=== PATIENT | female | born 1960 | race African-American/Black ===

== ENCOUNTER 2016-08-03 03:39 | Inpatient (IN) ==
--- NOTE | 2016-08-03 04:30 | Emergency Department Note ---
I, Tara Hoffman, am scribing for, and in the presence of, Verna Duran DO 04:27. IRoger Debra, DO, personally performed the services described in this documentation, ascribed by Tara Hoffman in my presence, and it is both accurate and complete 430 . Arrival - Arrival Chief Complaint: Non-Specific ED Nursing Triage Note: patient to ED via ems with c/o calling ambulance for being on the floor and not being able to get up. upon ems arrival patient was c/ o abd pain, sob. patient is currently stating she cant breath and has abd pain. patient has alot of unaccoutned for medication according to her rx bottles. Mode of Arrival: Stretcher Limitations: No Limitations Source: Patient Time Seen by Provider: 08/03/16 03:53 - History of Present Illness HPI Narrative: Pt is a 55 y/o female who came to ED by EMS for further evaluation of SOB and abdomen pain s/p of EMS finding pt on floor of home this morning. EMS reports having to break door down to get in due to pt unresponsive on floor. (EMS states her house is empty but clean; no cushions in the couch, mattress on floor , 2 TVs, cabinets are bare.) EMS notes pt was combative when aroused and had sputum and gross amounts of BMs during walk from home to ambulance. EMS repots newly filled prescription bottles of 2 different norcos (2015) were found more than half taken of originally prescribed 90 to 100. Pt's bottle of ambien prescribed beginning of July 2016 is completely empty. Pt denies suicidal ideation or taking any of these medications today or last night. Pt is a smoker of [employer] 100s and PCP is Dr. Gertrudis Quinones. Pt has 7 kids and no one was at the residence or in the hospital with her. Onset (ago): hour(s) Consistency: constant Severity: moderate Severity scale (1-10): 6 Allergies/Adverse Reactions: Allergies Allergy/AdvReac Type Severity Reaction Status Date / Time acetaminophen [From Vicodin] Allergy Nausea Verified 06/24/16 13:15 hydrocodone [From Vicodin] Allergy Nausea Verified 06/24/16 13:15 tapentadol [From Nucynta] Allergy ITCHING Verified 06/24/16 13:15 aspirin AdvReac Unknown/Unable Verified 06/24/16 13:15 to obtain Home Medications: Home Medications Medication Instructions Recorded Confirmed Type Atenolol 1 tablet PO DAILY 05/12/15 08/03/16 History Escitalopram [Lexapro] 20 mg PO DAILY 05/12/15 08/03/16 History cloNIDine HCl [Clonidine HCl] 0.2 mg PO BID #60 tablet 05/12/15 08/03/16 Rx Acetaminophen Tab [Tylenol Tab] 650 mg PO Q6H PRN #0 tablet 08/07/16 Rx Aspirin EC Tab 81 mg PO DAILY tablet 08/07/16 Rx Cholecalciferol (Vitamin D3) 50,000 unit PO DIRECTED #1 08/07/16 Rx [Vitamin D3] capsule Docusate Sodium Cap [Colace Cap] 100 mg PO BID capsule 08/07/16 Rx Gabapentin 600 mg PO BEDTIME #30 tablet 08/07/16 Rx Hyoscyamine Tab [Levsin Tab] 1 mg PO QID PRN #0 tablet 08/07/16 Rx Lisinopril [Prinivil] 20 mg PO BID #60 tablet 08/07/16 Rx Pantoprazole Tab [Protonix Tab] 40 mg PO DAILY #30 tablet 08/07/16 Rx Potassium Chloride Cap/Tab [K Dur] 20 meq PO DAILY #7 tablet 08/07/16 Rx hydrALAZINE TAB [Apresoline Tab] 25 mg PO BID #60 tablet 08/07/16 Rx levETIRAcetam TAB [Keppra Tab] 500 mg PO BID #60 tablet 08/07/16 Rx traMADol TAB [Ultram] 50 mg PO Q12H PRN #60 tablet 08/07/16 Rx Review of System - Review of System 12 point system: reviewed and no additional remarkable complaints except as stated - Review of System Constitutional: Present: weakness. Absent: chills, fever Respiratory: Present: respiratory distress (SOB). Absent: cough Cardiovascular: Absent: chest pain Gastrointestinal: Present: abdominal pain, other (nml BM but in gross amounts) Musculoskeletal: Absent: arm pain, back pain, leg pain, neck pain Skin: Absent: rash Neurological: Absent: headache Medical,Surgical,& Family Hx - Medical History Cardio: History of: Hypertension Psychological: History of: Bipolar Disorder Neurology: History of: Seizures Endocrine: No history of: Diabetes Mellitus (NIDDM) Respiratory: No history of: Asthma, COPD Genitourinary: No history of: Kidney Stones Gastrointestinal: History of: Gastrointestinal Bleed (remote NSAID induced ulceration), GI Problems (BLEEDING ULCERS) No history of: Liver Problems Musculoskeletal: History of: Back/Neck Problems (DR PRUITT), Musculoskeletal Problems (OA in rt hand) Reproductive: No history of: Abnormal Pap Smear Other: History of: Miscellaneous Medical Problems (chronic pain management Dr. Pruitt) - Surgical History Cardiac Surgeries: Patient Denies: Cardiac Catheterization Reproductive Surgeries: Surgical HX of;: Section (x3) - Family History Family History: Reports;: Family Stroke (MOTHER) - Social History Smoking Status: Current every day smoker Frequency of Alcohol Use: None Type of Drug Use: None Exam Vital Signs: Vital Signs Temperature 97.3 F L 08/08/16 07:20 Pulse Rate 59 L 08/08/16 07:20 Respiratory Rate 20 08/08/16 07:20 Blood Pressure 192/68 08/08/16 07:20 O2 Sat by Pulse Oximetry 97 08/08/16 07:20 - General General appearance: alert, lethargic, in distress - Head Head exam: Present: atraumatic, normocephalic - Eye Eye exam: Present: PERRL, EOMI - ENT ENT exam: Present: mucous membranes dry. Absent: mucous membranes moist - Neck Neck exam: Present: full ROM. Absent: tenderness - Chest Chest inspection: Present: symmetric chest wall rise. Absent: tenderness - Respiratory Respiratory exam: Present: normal lung sounds bilaterally. Absent: respiratory distress - Cardiovascular Cardiovascular exam: Present: regular rate, normal rhythm, normal heart sounds - Abdominal Exam Abdominal exam: Present: soft, distention - Extremities Exam Extremities exam: Present: full ROM. Absent: tenderness, pedal edema - Neurological Exam Neurological exam: Present: alert, oriented X3, CN II-XII intact. Absent: motor sensory deficit - Psychiatric Psychiatric exam: Present: other (lethargic but easily arousable). Absent: normal affect, normal mood - Skin Skin exam: Present: warm, dry Results - Labs CBC & BMP: 08/06/16 03:20 08/08/16 04:38 Lab Results: I have reviewed the patients labs Labs: Laboratory Tests 08/03/16 08/03/16 08/03/16 03:53 04:05 04:05 WBC 16.2 H MCHC 31.2 L MPV 12.3 H Neut % (Auto) 75.6 H Lymph % (Auto) 15.8 L Neut # (Auto) 12.3 H Hamblen # (Auto) 1.0 H Glucose 131 H POC Glucose 136 H Alkaline Phosphatase 170 H Ammonia Troponin I Globulin 3.9 H Albumin/Globulin Ratio 0.8 L Urine Urobilinogen Urine Opiates Screen Serum Alcohol < 15 L 08/03/16 08/03/16 08/03/16 04:05 04:05 04:30 WBC MCHC MPV Neut % (Auto) Lymph % (Auto) Neut # (Auto) Hamblen # (Auto) Glucose POC Glucose Alkaline Phosphatase Ammonia 37 H Troponin I 0.051 H Globulin Albumin/Globulin Ratio Urine Urobilinogen < 2.0 H Urine Opiates Screen Serum Alcohol 08/03/16 04:30 WBC MCHC MPV Neut % (Auto) Lymph % (Auto) Neut # (Auto) Hamb[place] # (Auto) Glucose POC Glucose Alkaline Phosphatase Ammonia Troponin I Globulin Albumin/Globulin Ratio Urine Urobilinogen Urine Opiates Screen Positive H Serum Alcohol - Diagnostic Findings Procedure: CT Abdomen and Pelvis: report reviewed by me (1. A pleural-based nodular denisty on along the left lower lobe measuring 6.6 mm is noted. 2. The lungs also have a miliary appearance which could be artifactual and exaggerated by motion artifact. However an infectious process such as tuberculosis or lymphangitic infiltration are considerations. 3. Reminder of findings as described above.), CT: report reviewed by me (Head wo con: 1. No acute intracranial abnormality. Negative CT does not exclude an acute CVA. A follow up head or MRI is recommended if neurologic sxs persist. 2. Volume loss. 3. Reminder of findings as discussed above.) Disposition Clinical Impression: chronic pain syndrome, Alteration consciousness Case discussed with: patient Disposition: Still a Patient Condition: Stable New Prescriptions: Rx's Medication Instructions Recorded Acetaminophen Tab [Tylenol Tab] 650 mg PO Q6H PRN #0 tablet 08/07/16 Aspirin EC Tab 81 mg PO DAILY tablet 08/07/16 Cholecalciferol (Vitamin D3) 50,000 unit PO DIRECTED #1 08/07/16 [Vitamin D3] capsule Docusate Sodium Cap [Colace Cap] 100 mg PO BID capsule 08/07/16 Gabapentin 600 mg PO BEDTIME #30 tablet 08/07/16 Hyoscyamine Tab [Levsin Tab] 1 mg PO QID PRN #0 tablet 08/07/16 Lisinopril [Prinivil] 20 mg PO BID #60 tablet 08/07/16 Pantoprazole Tab [Protonix Tab] 40 mg PO DAILY #30 tablet 08/07/16 Potassium Chloride Cap/Tab [K Dur] 20 meq PO DAILY #7 tablet 08/07/16 hydrALAZINE TAB [Apresoline Tab] 25 mg PO BID #60 tablet 08/07/16 levETIRAcetam TAB [Keppra Tab] 500 mg PO BID #60 tablet 08/07/16 traMADol TAB [Ultram] 50 mg PO Q12H PRN #60 tablet 08/07/16
[2016-08-03 04:44] LABS: Apearance,Urine CLEAR (Clear); Bilirubin,Urine Negative (Negative); Blood, Urine Negative (Negative); Glucose,Urine (UA) Negative (Negative); Hyaline Casts,Urine 1 /LPF (0-3); Ketones,Urine Negative (Negative); Mucus,Urine Occasional /LPF (Occasional); Nitrite,Urine Negative (Negative); Protein,Urine 30 MG/DL; RBC,Urine <1 /HPF (0-4); Urine Color Yellow (Yellow); Urine Specific Gravity 1.012 (1.001-1.035); Urine Urobilinogen < 2.0 EU/DL (0.2-1.0); WBC,Urine <1 /HPF (0-6)
[2016-08-03 04:55] LABS: Barbiturates Screen,Urine Negative (Negative); Benzodiazepines Screen,Urine Negative (Negative); Cannabinoid Screen,Urine Negative (Negative); Opiate Screen,Urine Positive (Negative); Phencyclidine Screen,Urine Negative (Negative)
[2016-08-03 05:01] LABS: Basophils % 0.2 % (0.0-0.8); Eosinophils # 0.2 10*3/uL (0.0-0.87); Hemoglobin 13.1 GM/DL (12.0-16.0); Immature Granulocytes % 1.2 %; Immature Granulocytes Absolute 0.19 #; Lymphocytes # 2.6 10*3/uL (1.4-4.0); Lymphocytes % 15.8 % (21.3-54.2); Mean Corpuscular HGB Conc 31.2 GM/DL (32-36); Mean Corpuscular Hemoglobin 29 PG (27-34); Mean Corpuscular Volume 93.5 FL (87-102); Mean Platelet Volume 12.3 FL (9.6-12.0); Monocytes % 6.2 % (1.7-12.7); Neutrophils # 12.3 10*3/uL (1.4-7.4); Neutrophils % 75.6 % (38.7-73.9); Platelet Count 284 10*3/uL (130-400); Red Blood Count 4.49 10*6/uL (3.8-5.5); Red Cell Distribution Width 14.2 % (9.3-17.3); White Blood Count 16.2 10*3/uL (4.5-13.71)
[2016-08-03 05:09] LABS: Lactic Acid 1.8 MMOL/L (0.4-2.0)
[2016-08-03 05:15] LABS: Alanine Aminotransferase 19 U/L (13-56); Albumin 3.5 G/DL (3.4-5.0); Alkaline Phosphatase 170 U/L (45-117); Aspartate Amino Transferase 20 U/L (0-37); Blood Urea Nitrogen 10 MG/DL (7-18); Calcium 8.5 MG/DL (8.5-10.1); Glucose 131 MG/DL (74-106); Osmolality,Calculated 288.7 MOS/KG (273-304); Sodium 145 MMOL/L (136-145); Total Protein 7.4 G/DL (6.4-8.3)
[2016-08-03 05:18] LABS: Troponin I Only 0.051 NG/ML (0.00-0.045)
[2016-08-03] MEDS ORDERED: hydrALAZINE 20 MG/1 ML VIAL IV STA (05:31)
[2016-08-03] MEDS ORDERED: hydrALAZINE 20 MG/1 ML VIAL ONE (05:33)
[2016-08-03] MEDS ORDERED: cefTRIAXone 1,000 MG in SODIUM CHLORIDE 0.9% 100 ML IV STA (05:41)
[2016-08-03] MEDS ORDERED: cefTRIAXone 1,000 MG VIAL ONE (05:50)
[2016-08-03] MEDS ORDERED: ONDANSETRON 4 MG/2 ML VIAL IV STA (05:50)
[2016-08-03] MEDS ORDERED: SODIUM CHLORIDE 0.9% 100 ML IV ONE (05:50)
[2016-08-03] MEDS ORDERED: MORPHINE 2 MG/1 ML SYRINGE IV STA (05:51)
[2016-08-03] MEDS ORDERED: ONDANSETRON 4 MG/2 ML VIAL ONE (05:52)
[2016-08-03] MEDS ORDERED: MORPHINE 2 MG/1 ML SYRINGE ONE (05:52)
[2016-08-03] MEDS ORDERED: METOCLOPRAMIDE 10 MG/2 ML VIAL IV STA ×2 (06:00→06:02)
[2016-08-03] MEDS ORDERED: METOCLOPRAMIDE 10 MG/2 ML VIAL ONE (06:00)
[2016-08-03] MEDS ORDERED: METOPROLOL TARTRATE 5 MG/5 ML VIAL IV ONE (06:01)
[2016-08-03] MEDS ORDERED: METOPROLOL TARTRATE 5 MG/5 ML VIAL IV STA (06:02)
[2016-08-03] MEDS ORDERED: PROMETHAZINE 25 MG/1 ML VIAL IM PRN (06:05)
[2016-08-03] MEDS ORDERED: ONDANSETRON 4 MG/2 ML VIAL IV PRN (06:05)
[2016-08-03] MEDS ORDERED: FAMOTIDINE 20 MG/2 ML VIAL IV SCH (06:30)
--- NOTE | 2016-08-03 07:14 | EKG Report ---
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
[2016-08-03] MEDS ORDERED: cloNIDine 0.1 MG TABLET PO STA (07:34)
--- NOTE | 2016-08-03 08:33 | CT Report ---
History is altered LOC Comparison 08/17/2015 and prior MRI. The lateral ventricles are normal in size No acute intracranial hemorrhage is seen There is a 1.5 CM nodule in the left sellar and suprasellar region similar on the prior study No new areas of mass effect are seen No acute cortical stroke seen Impression: No appreciable change in 1.5 CM left sellar and suprasellar soft tissue mass as previously described PROCEDURE INTERPRETED AT [facility] DEPARTMENT OF RADIOLOGY Final Report Signed by: Dr. Lucy Byrne
--- NOTE | 2016-08-03 08:41 | CT Report ---
History is generalized abdominal pain There is mild interstitial prominence and bronchial wall thickening and minimal groundglass opacities in the visualized lung bases area and there is a 6 mm subpleural nodule in the visualized left lung base. Motion artifact mildly limits many the images No secondary signs of acute ureteral obstruction seen No enlarged retroperitoneal nodes seen Bowel is unopacified Pelvis: Varghese catheter is present. No free fluid or focal inflammatory changes seen. Impression: 1. Interstitial and groundglass opacities in the lung bases could be chronic or related to mild interstitial infiltrates versus edema 2. 6 mm subpleural nodule in the left lung base. Comparison with any available prior studies would be most helpful. Correlation with any known risk factors is recommended. At minimum, [address] chest should be considered PROCEDURE INTERPRETED AT [facility] DEPARTMENT OF RADIOLOGY Final Report Signed by: Dr. Lucy Byrne
[2016-08-03] MEDS ORDERED: HYOSCYAMINE 0.125 MG TABLET PO PRN (09:13)
[2016-08-03] MEDS ORDERED: ACETAMINOPHEN 325 MG TABLET PO PRN (09:15)
[2016-08-03] MEDS ORDERED: ATENOLOL 25 MG TABLET PO SCH (09:30)
--- NOTE | 2016-08-03 09:43 | Family Practice History&Phys ---
Assessment and Plan (1) right upper quadrant abdominal pain Status: Acute Assessment and plan: Not sure of etiology of her abdominal pain. We will order additional studies and consult GI Current Visit: Yes (2) trigeminal neuralgia Status: Chronic Assessment and plan: Patient on chronic pain medications treated by Dr. Marshall Current Visit: Yes (3) chronic pain syndrome Status: Chronic Assessment and plan: Patient on chronic pain medications treated Dr. pruitt Current Visit: Yes (4) bipolar disorder Status: Chronic Assessment and plan: Will resume home meds Current Visit: Yes (5) History of seizures Status: Chronic Current Visit: No (6) Hypertension Status: Chronic Assessment and plan: Will resume home meds Current Visit: No Qualifiers: Hypertension type: essential hypertension Qualified Code(s): I10 - Essential (primary) hypertension History of Present Illness Chief complaint: abdominal pain and weakness History of present illness: Ms. Klein is a 55 year old female Pt is a 55 y/o female who came to ED by EMS for further evaluation of SOB and abdomen pain s/p of EMS finding pt on floor of home this morning. EMS reports having to break door down to get in due to pt unresponsive on floor. (EMS states her house is empty but clean; no cushions in the couch, mattress on floor , 2 TVs, cabinets are bare.) EMS notes pt was combative when aroused and had sputum and gross amounts of BMs during walk from home to ambulance. EMS repots newly filled prescription bottles of 2 different norcos (2015) were found more than half taken of originally prescribed 90 to 100. Pt's bottle of ambien prescribed beginning of July 2016 is completely empty. Pt denies suicidal ideation or taking any of these medications today or last night. Pt is a smoker of [employer] 100s and PCP is Dr. Gertrudis Quinones. Pt has 7 kids and no one was at the residence or in the hospital with her. Main complaint at time of my evaluation was abdominal pain. She remains somewhat lethargic but points to the right upper quadrant of abdomen. States she has pain on minimal palpation. CT abdomen was unremarkable. The history was admitted further evaluation and therapy Home Medications Medication Instructions Recorded Confirmed Type Atenolol [Atenolol] 1 tablet PO DAILY 05/12/15 06/24/16 History Escitalopram [Lexapro] 20 mg PO DAILY 05/12/15 06/24/16 History cloNIDine HCl [Clonidine HCl] 0.2 mg PO BID #60 tablet 05/12/15 08/03/16 Rx OXcarbazepine [Oxcarbazepine] 300 mg PO DAILY 04/27/16 06/24/16 History Gabapentin 600 mg PO QID 06/24/16 06/24/16 History Hydrocodone/Acetaminophen [Lortab 1 each PO QID PRN 06/24/16 06/24/16 History 10-325 mg Tablet] Hyoscyamine Odt Tab [Anaspaz] 1 tablet PO QID PRN 08/03/16 08/03/16 History Allergies Allergy/AdvReac Type Severity Reaction Status Date / Time acetaminophen [From Vicodin] Allergy Nausea Verified 06/24/16 13:15 hydrocodone [From Vicodin] Allergy Nausea Verified 06/24/16 13:15 tapentadol [From Nucynta] Allergy ITCHING Verified 06/24/16 13:15 aspirin AdvReac Unknown/Unable Verified 06/24/16 13:15 to obtain Medical,Surgical,& Family Hx - Medical History Cardio: History of: Hypertension Psychological: History of: Bipolar Disorder Neurology: History of: Seizures Endocrine: No history of: Diabetes Mellitus (NIDDM) Respiratory: No history of: Asthma, COPD Genitourinary: No history of: Kidney Stones Gastrointestinal: History of: Gastrointestinal Bleed (remote NSAID induced ulceration), GI Problems (BLEEDING ULCERS) No history of: Liver Problems Musculoskeletal: History of: Back/Neck Problems (DR PRUITT), Musculoskeletal Problems (OA in rt hand) Reproductive: No history of: Abnormal Pap Smear Other: History of: Miscellaneous Medical Problems (chronic pain management Dr. Pruitt) - Surgical History Cardiac Surgeries: Patient Denies: Cardiac Catheterization Reproductive Surgeries: Surgical HX of;: Section (x3) - Family History Family History: Reports;: Family Stroke (MOTHER) - Social History Smoking Status: Current every day smoker Have you smoked in the last 12 months: Yes Time spent discussing smoking cessation with patient: 3 to 10 minutes Frequency of Alcohol Use: None Type of Drug Use: Opiates Lives With:: Alone Functional capacity: independent ambulation Exam - Constitutional Vitals: Period Temp Pulse Resp BP Sys/Vogel Pulse Ox Last 24 Hr 94-95 17-17 150-158/88-100 99-100 General appearance: mild distress - Head Head exam: Present: normal inspection - Eye Pupils: Present: normal accommodation - ENT ENT exam: Present: normal exam - Neck Neck exam: Present: normal inspection - Respiratory Respiratory exam: Present: clear to auscultation bilaterally - Cardiovascular Cardiovascular exam: Present: regular rate and rhythm - GI/Abdominal GI/Abdominal exam: Present: normal bowel sounds, tenderness (plan is on palpation over the epigastric and right upper quadrant) - Extremities Exam Extremities exam: Present: normal inspection - Back Exam Back exam: Present: normal inspection - Neurological Exam Neurological exam: Present: altered - Psychiatric Psychiatric exam: Present: flat affect - Skin Skin exam: Present: normal color Results - Labs CBC & BMP: 08/03/16 04:05 08/03/16 04:05
[2016-08-03] MEDS: DOCUSATE SODIUM 100 MG CAPSULE PO SCH ×2 (10:25→20:41)
[2016-08-03] MEDS: ESCITALOPRAM 10 MG TABLET PO SCH (10:26)
[2016-08-03] MEDS: SODIUM CHLORIDE 0.9% 1,000 ML IV SCH (10:28)
--- NOTE | 2016-08-03 10:37 | Ultrasound Report ---
History is generalized abdominal pain and epigastric pain Hepatic and splenic size and echotexture is normal. No gallstones or biliary ductal dilatation seen. The visualized pancreas is normal in size. The visualized IVC and aorta are normal in size. No renal hydronephrosis identified bilaterally. Impression: Unremarkable abdominal ultrasound. The Ultrasound images were captured and stored. PROCEDURE INTERPRETED AT [facility] DEPARTMENT OF RADIOLOGY Final Report Signed by: Dr. Lucy Byrne
[2016-08-03] MEDS: GABAPENTIN 600 MG TABLET PO SCH ×3 (13:14→20:41)
--- NOTE | 2016-08-03 13:43 | XRay Report ---
History is dyspnea Comparison 08/15/2015 Heart is at the upper range normal in size. There is mild prominence of upper lobe vasculature There has been development of mildly increasing diffuse bilateral interstitial pulmonary opacities without more focal consolidation. Impression: Mild worsening of diffuse interstitial opacities most likely pulmonary edema PROCEDURE INTERPRETED AT [facility] DEPARTMENT OF RADIOLOGY Final Report Signed by: Dr. Lucy Byrne
[2016-08-03] MEDS ORDERED: FUROSEMIDE 40 MG/4 ML VIAL IM ONE (14:04)
--- NOTE | 2016-08-03 14:13 | Family Practice Progress Note ---
Family Practice - PN: Subj Interval history: This is an addendum to previous note. When I initially saw the patient she was in no respiratory distress and her respiratory rate was 17. Her lungs were clear to auscultation. After going back and reviewing the chart I did not find a chest x-ray present. I also did not realize that she was on 5 L of nasal O2. Reevaluation shows that she's in pulmonary edema. Her respiratory rate and pulse remain stable. She still does not appear to be any acute respiratory distress. Her BNP was elevated at 664 on admission. History provided on admission centered around her abdominal pain and not about any respiratory problems. I cannot find any previous record of her having a history of congestive heart failure. She is actually much more alert now and in no acute distress. Will decrease her oxygen and in view of the pulmonary edema we will give the patient patient IV and oral Lasix. We'll obtain a cardiac echo and cardiology consult. Her complaint is still in reference to her abdominal pain. Patient history is still somewhat confusing and I feel that most of her symptoms began with taking excessive amounts of her pain and sedative medications. EMS reported that patient had a large amounts of bowel movement when they stood her up to take her to the ambulance. We will continue to monitor closely and obtain additional studies. Exam (Progress Note) - Constitutional Vitals: Period Temp Pulse Resp BP Sys/Vogel Pulse Ox Last 24 Hr 98.5 F-99.9 F 82-96 16-20 150-182/88-129 94-100 Results - Labs CBC & BMP: 08/03/16 04:05 08/03/16 04:05 Assessment and Plan (1) right upper quadrant abdominal pain Status: Acute Assessment and plan: Not sure of etiology of her abdominal pain. We will order additional studies and consult GI Current Visit: Yes (2) trigeminal neuralgia Status: Chronic Assessment and plan: Patient on chronic pain medications treated by Dr. Marshall Current Visit: Yes (3) chronic pain syndrome Status: Chronic Assessment and plan: Patient on chronic pain medications treated Dr. vargas Current Visit: Yes (4) bipolar disorder Status: Chronic Assessment and plan: Will resume home meds Current Visit: Yes (5) History of seizures Status: Chronic Current Visit: No (6) Hypertension Status: Chronic Assessment and plan: Will resume home meds Current Visit: No Qualifiers: Hypertension type: essential hypertension Qualified Code(s): I10 - Essential (primary) hypertension
[2016-08-03] MEDS ORDERED: FUROSEMIDE 40 MG/4 ML VIAL IV ONE (15:03)
[2016-08-03] MEDS ORDERED: FUROSEMIDE 20 MG TABLET PO SCH (16:00)
[2016-08-03] MEDS ORDERED: TUBERCULIN SKIN TEST 0.1 ML SYRINGE INTRADERM ONE (16:35)
[2016-08-03 17:13] LABS: Blood Urea Nitrogen 10 MG/DL (7-18); Calcium 8.8 MG/DL (8.5-10.1); Glucose 107 MG/DL (74-106); Osmolality,Calculated 284.8 MOS/KG (273-304); Potassium 4.4 MMOL/L (3.5-5.1); Sodium 144 MMOL/L (136-145); Troponin I Only 0.258 NG/ML (0.00-0.045)
[2016-08-03] MEDS: LEVOFLOXACIN INJ 500 MG in PREMIX 1 EACH IV SCH (17:46)
--- NOTE | 2016-08-03 19:58 | Family Practice Progress Note ---
Family Practice - PN: Subj Interval history: Staff contacted the on the floor stating that patient had minimally distended having twitching of her teeth with frothing her mouth and unresponsiveness. She has a history of seizure disorders and patient tells me that last took seizure medicines 10 years ago. I do not have any records of this. She is on Neurontin but supposedly vest for her chronic pain. On admission this a.m. apparently she had significant respiratory distress which apparently resolved with oxygen treatment. I titrated her oxygen and her O2 sats have remained stable but now have dropped back to the 80s and we have increased her oxygen. Her troponin has significantly decreased as well as her BNP has doubled since his a.m.. She's had good urinary output throughout the day. Clinically her symptoms do not match her labs and stated history. Her pulse and respirations have remained stable throughout the day. Do not have any old records or family to provide history. Patient now is relaxed and is denying any complaints. Earlier she was complaining of severe upper quadrant abdominal pain but now denies abdominal pain. She is resting well and denies chest pain shortness of breath or other complaints. This case has been somewhat confusing as clinical picture does not match lab and other findings. Clinically it sounds as though she had a seizure. I started her on IV Keppra. I have reviewed case in detail with staff. We'll continue to watch closely. Exam (Progress Note) - Constitutional Vitals: Period Temp Pulse Resp BP Sys/Vogel Pulse Ox Last 24 Hr 98.2 F-99.9 F 72-96 12-20 138-182/86-129 88-100 Results - Labs CBC & BMP: 08/03/16 04:05 08/03/16 16:20 Assessment and Plan (1) right upper quadrant abdominal pain Status: Acute Assessment and plan: Not sure of etiology of her abdominal pain. We will order additional studies and consult GI Current Visit: Yes (2) trigeminal neuralgia Status: Chronic Assessment and plan: Patient on chronic pain medications treated by Dr. Marshall Current Visit: Yes (3) chronic pain syndrome Status: Chronic Assessment and plan: Patient on chronic pain medications treated Dr. vargas Current Visit: Yes (4) bipolar disorder Status: Chronic Assessment and plan: Will resume home meds Current Visit: Yes (5) History of seizures Status: Chronic Current Visit: No (6) Hypertension Status: Chronic Assessment and plan: Will resume home meds Current Visit: No Qualifiers: Hypertension type: essential hypertension Qualified Code(s): I10 - Essential (primary) hypertension
[2016-08-04 05:06] LABS: Basophils % 0.2 % (0.0-0.8); Eosinophils # 0.1 10*3/uL (0.0-0.87); Eosinophils % 1.1 % (0.00-10.9); Hemoglobin 12.3 GM/DL (12.0-16.0); Immature Granulocytes % 0.3 %; Immature Granulocytes Absolute 0.03 #; Lymphocytes % 20.5 % (21.3-54.2); Mean Corpuscular HGB Conc 30.8 GM/DL (32-36); Mean Corpuscular Hemoglobin 29 PG (27-34); Mean Platelet Volume 12.6 FL (9.6-12.0); Monocytes # 0.7 10*3/uL (0.11-0.8); Monocytes % 7.5 % (1.7-12.7); Neutrophils # 6.9 10*3/uL (1.4-7.4); Neutrophils % 70.4 % (38.7-73.9); Platelet Count 140 10*3/uL (130-400); Red Blood Count 4.21 10*6/uL (3.8-5.5); Red Cell Distribution Width 14.4 % (9.3-17.3); White Blood Count 9.8 10*3/uL (4.5-13.71)
[2016-08-04 05:36] LABS: Magnesium 2.2 MG/DL (1.8-2.4); Risk Ratio 2.15; VLDL CHOLESTEROL 18.4 MG/DL
[2016-08-04 05:51] LABS: Albumin 2.8 G/DL (3.4-5.0); Bilirubin,Total 0.8 MG/DL (0.2-1.0); Calcium 8.6 MG/DL (8.5-10.1); Osmolality,Calculated 285.8 MOS/KG (273-304); Potassium 5.2 MMOL/L (3.5-5.1); Total Protein 6.5 G/DL (6.4-8.3)
--- NOTE | 2016-08-04 08:28 | Gastrointestinal Consult Note ---
Assessment and Plan - Time spent with patient Time spent with patient: Greater than 30 minutes (1) right upper quadrant abdominal pain Status: Acute Current Visit: Yes (2) Other specified counseling Status: Acute Current Visit: Yes History of Present Illness History of present illness: Ms. Klein is a 55 year old female Home Medications Medication Instructions Recorded Confirmed Type Atenolol [Atenolol] 1 tablet PO DAILY 05/12/15 08/03/16 History Escitalopram [Lexapro] 20 mg PO DAILY 05/12/15 08/03/16 History cloNIDine HCl [Clonidine HCl] 0.2 mg PO BID #60 tablet 05/12/15 08/03/16 Rx OXcarbazepine [Oxcarbazepine] 300 mg PO DAILY 04/27/16 08/03/16 History Gabapentin 600 mg PO QID 06/24/16 08/03/16 History Hydrocodone/Acetaminophen [Lortab 1 each PO QID PRN 06/24/16 08/03/16 History 10-325 mg Tablet] Hyoscyamine Odt Tab [Anaspaz] 1 tablet PO QID PRN 08/03/16 08/03/16 History Allergies Allergy/AdvReac Type Severity Reaction Status Date / Time acetaminophen [From Vicodin] Allergy Nausea Verified 06/24/16 13:15 hydrocodone [From Vicodin] Allergy Nausea Verified 06/24/16 13:15 tapentadol [From Nucynta] Allergy ITCHING Verified 06/24/16 13:15 aspirin AdvReac Unknown/Unable Verified 06/24/16 13:15 to obtain Medical,Surgical,& Family Hx - Medical History Cardio: History of: Hypertension Psychological: History of: Bipolar Disorder Neurology: History of: Seizures Endocrine: No history of: Diabetes Mellitus (NIDDM) Respiratory: No history of: Asthma, COPD Genitourinary: No history of: Kidney Stones Gastrointestinal: History of: Gastrointestinal Bleed (remote NSAID induced ulceration), GI Problems (BLEEDING ULCERS) No history of: Liver Problems Musculoskeletal: History of: Back/Neck Problems (DR PRUITT), Musculoskeletal Problems (OA in rt hand) Reproductive: No history of: Abnormal Pap Smear Other: History of: Miscellaneous Medical Problems (chronic pain management Dr. Pruitt) - Surgical History Cardiac Surgeries: Patient Denies: Cardiac Catheterization Reproductive Surgeries: Surgical HX of;: Section (x3) - Family History Family History: Reports;: Family Stroke (MOTHER) - Social History Smoking Status: Current every day smoker Frequency of Alcohol Use: None Type of Drug Use: Opiates Exam - Constitutional Vitals: Period Temp Pulse Resp BP Sys/Vogel Pulse Ox Last 24 Hr 97.4 F-99.9 F 7-82 12-28 138-179/86-105 88-100 Results - Labs CBC & BMP: 08/04/16 04:25 08/04/16 04:25 Note Addendum: PLEASE NOTE -- automatic citation of patient information is unavoidable in this electronic note. I have made a reasonable effort to review the information cited , but it is not a part of my evaluation, impression, or recommendation unless specifically discussed in the dictated text that follows. As well, voice recognition software was used in the creation of this clinical note. Reasonable effort was made to identify and correct gross errors. Despite proofreading, errors in animal scientist may be present, including nonsense verbiage at times. If you encounter such an error, please contact me at [phone] for discussion and correction. -- Consuelo Chief complaint: abdominal pain History of present illness: this is a new patient, a 55-year-old female seen by consultation for evaluation of right upper quadrant abdominal pain. The patient is admitted to the intensive care unit under the care of Dr. Love Quinones with a primary diagnosis of same. The patient was admitted through the emergency department yesterday, brought in by EMS, after having been found down on the floor of her home. The EMS providers and emergency department providers apparently found evidence that she may have taken multiple doses of narcotic pain medication. It was also noted that she was difficult to arouse and incontinent of stool prior to arriving at the hospital. Evaluation in the emergency room revealed nondiagnostic and relatively minor abnormalities as well as interstitial and groundglass opacities in the lung bases. The patient was admitted to the telemetry floor for further evaluation. On the day of admission, the patient was subject to a rapid response called due to poor responsiveness reported by the staff. Subsequent evaluation by her primary physician reported resolution of this concern with relatively minor intervention. The patient did develop further laboratory evidence of pulmonary edema/congestive heart failure but it is unclear to me whether this is incidental or was primarily involved in the rapid response called. The patient suffers from reported bipolar disorder as well as a reported history of seizures but has not taken medication for these conditions for some time. At present the patient reports continued right upper quadrant abdominal pain, aching quality with sharp peroxisms. She notes this has been going on for months or years. The pain is positional, worse when she is on her left side, but generally unresponsive to other measures. The pain is not affected by eating. She reports a history of peptic ulcer requiring endoscopic intervention about five years ago. She reports no NSAID use recently but is somewhat equivocal regarding her medication use generally. She does note a single episode of bright red blood per rectum this past Friday but thinks this may have been hemorrhoid related. She thinks she may have had colonoscopy some years ago but is equivocal on this question as well. She is unaware of any family history of gastrointestinal disease. Patient denies fever, chills, night sweats, rigors, visual changes, redness of the eyes, dysphagia, odynophagia, difficulty chewing, chest pain, weight loss, vomiting, regurgitation, hematemesis, melena, proctalgia, constipation, dysuria , skin changes, temperature regulation issues, flushing, easy bleeding/bruising , numbness/weakness in the extremities, yellowing of the eyes/skin, cutaneous eruptions, family history of gastrointestinal cancer and colon polyps, and other complaints in general. Review of systems: 12 point review of systems was negative except as documented above. Outpatient medications: atenolol, Lexapro, clonidine, oxcarbazepine, gabapentin , Lortab, hyoscyamine Inpatient medications: Tylenol, [place], atenolol, clonidine, Colace, Lexapro, Lasix, Neurontin, hyoscyamine, levetiracetam, levofloxacin, Zofran, Protonix, Phenergen, normal saline infusion Past Medical History: bipolar disorder, chronic pain, trigeminal neuralgia, history of seizures, pituitary adenoma, hypertension, cocaine abuse Social history: positive tobacco. Negative Alcohol Family history: No gastrointestinal cancers Physical examination: Vital Signs: Current vital signs reviewed and documented above. General Appearance: lying in bed. Comfortable. Conversant. No apparent distress Head: Normocephalic. Neck: Palpation of the neck revealed no abnormalities. Eyes: No scleral icterus. No scleral injection. No conjunctival pallor. Oral Cavity: Odor of breath was normal. No drooling was observed. Lips showed no abnormalities. Floor of the mouth showed no abnormalities. Pharynx: Oropharynx was normal. Lungs: Respiration rhythm and depth was normal. Cardiovascular: Heart rate and rhythm were normal. Abdomen: Abdomen was protuberant due to obesity but not distended. Abdominal palpation revealed minimal tenderness at the right upper quadrant but no hepatosplenomegaly. Ascites was not discovered. Abdominal auscultation revealed positive bowel sounds. Musculoskeletal System: Musculoskeletal system was grossly normal. Neurological: Level of consciousness was normal. Speech was normal. Skin: General appearance was normal. Color and pigmentation were normal. No skin lesions. Laboratory: white blood count 9.8, hemoglobin 12.3, hematocrit 40, platelets 140 , sodium 144, potassium 5.2, chloride 107, CO2 24, BUN 14, creatinine 0.8, glucose 81, lactate 1.8, calcium 8.6, magnesium 2.2, total bilirubin 0.8, ALT 15 , AST 36, alkaline phosphatase 138, B and P 1500, albumin 2.8, total protein 6.5 Radiology: -- CT of the abdomen and pelvis revealed "interstitial and groundglass opacities in the lung bases And 6 mm sub Aura module in the left lung base" No abdominal or pelvic etiology for pain as documented -- Ultrasound of the abdomen reveals no evidence of hepatic, pancreatic, or biliary disease Impressions: 1. Abdominal pain -- the differential diagnosis includes peptic ulcer, gastritis /esophagitis generally, pancreatic or biliary disease, medication related affect , functional abdominal pain, abdominal wall pain, and others. There is no radiologic or laboratory evidence of pancreatic or biliary disease. There is evidence of prescription medication abuse and, by report, history of recreational drug abuse. It's possible that the gastrointestinal symptoms are related to medication use or medication withdrawal. I recommend continued proton pump inhibitor, minimization of medications to whatever extent possible, and aggressive volume/electrolyte management. We will plan upper endoscopy tomorrow. 2. Hematochezia -- the patient reports a single episode of blood in her stool. She is not anemic at present. She believes she has had colonoscopy in the past but I don't believe we have any hope of getting this record. She will need diagnostic colonoscopy with timing based on clinical progress. If she is otherwise able to leave the hospital, this can be done in the outpatient setting. 3. Other specified counseling: The patient was seen for greater than 30 minutes. The patient was counseled for greater than 50% of this time regarding differential diagnosis, likely diagnosis, diagnostic and therapeutic alternatives, risks/benefits/alternatives of medications and procedures, and plan of care generally. The patient expressed understanding and wishes to proceed. Recommendations: -- continue Protonix -- minimize medications to whatever extent possible -- aggressive volume and electrolyte management -- upper endoscopy tomorrow -- colonoscopy with timing based on clinical progress -- thank you for this consultation. Dr. Alcantar will assume G.I. care for this patient tomorrow.
--- NOTE | 2016-08-04 08:40 | XRay Report ---
History is short of breath Comparison 08/03/2016 The heart and vessels remain mildly enlarged with mild diffuse bilateral reticulonodular and hazy pulmonary opacities. The lungs are less well aerated than on the prior study. No consolidation seen. Impression: No significant change in diffuse bilateral infiltrates versus edema PROCEDURE INTERPRETED AT [facility] DEPARTMENT OF RADIOLOGY Final Report Signed by: Dr. Lucy Byrne
--- NOTE | 2016-08-04 09:11 | Cardiology Consult Note ---
Assessment and Plan (1) NSTEMI (non-ST elevated myocardial infarction) Status: Acute Assessment and plan: 55y BF presented with acute onset right upper quadrant pain, cardiac biomarkers more than elevated, CHF, which resulted diuretics. Presentation is suspicious for hypertensive urgency, demand ischemia, CHF. This may have been exacerbated by opioid use, in addition, she may still also have some active GI pathology, history of ulcers. She is not bleeding actively. -NSTEMI. Will r/o ACS, eval for stress cardiomyopathy -Start ASA. I discussed this with Dr. Cordero. Until ACS is ruled out, we will need to keep her on an antiplatelet. She is not bleeding now. She is on a PPI. I would hold off adding Lovenox at this time. -Increase atenolol to 50 mg twice a day. BP still elevated. Cont clonidine. Add lisinopril 10 mg qd -Lipid panel normal. BS normal. If she rules in for ACS, will add statin -Echo. -Continue Lasix 20 mg by mouth twice a day. She got IV Lasix earlier, now the CHF symptoms improved and she does not have pulmonic congestion. -If the systolic function is preserved and she remains free of shortness of breath, GI evaluation may be pursued tomorrow. If she develops further CHF or echo shows significant CMP, may need cardiac/ischemic workup first Current Visit: Yes (2) Hypertension Status: Chronic Current Visit: No Qualifiers: Hypertension type: essential hypertension Qualified Code(s): I10 - Essential (primary) hypertension History of Present Illness - Data of Consult Patient: new to practice Consult date: 08/04/16 Requesting Physician: Keith Iglesias - Consult Narrative Reason for consult: syncope History of present illness: Ms. Klein is a 55 year old BF, with history of hypertension, GI ulcers, hemorrhoids, chronic pain issues. She developed severe right upper quadrant pain yesterday, which was quite rapid in onset. She described her diet for the past few days, in quite good detail, she did not have any major dietary issues but had lots of foods high in CH. She does drink some alcohold but does not seem to br drinking excessively. She called ambulance but by the time that she fell down and she may have passed out. She was then brought to the hospital. Initially, she did well, but then developed shortness of breath, which improved with diuresis. Now, she is comfortable, denies any chest pain shortness of breath but the abdominal pain still persists. She had a bowel movement yesterday. So far, workup, including CT labs x-ray and abdominal ultrasound, does not suggest obstruction or inflammatory process. She was recently evaluated for similar symptoms at [facility]. She also has a questionable history of seizures. No prior cardiac history, CABG, arrhythmia's, palpitations or chest pain. She may have taken too many [place], which is her usual pain medication. U tox was only positive for opiates. Cardiac enzymes were borderline elevated and remained flat. EKG showed significant ischemic changes. Blood pressure is still elevated. She had good urine output with Lasix. CC: Love Quinones, DO - Home Medications and Allergies Home Medications: Home Medications Medication Instructions Recorded Confirmed Type Atenolol [Atenolol] 1 tablet PO DAILY 05/12/15 08/03/16 History Escitalopram [Lexapro] 20 mg PO DAILY 05/12/15 08/03/16 History cloNIDine HCl [Clonidine HCl] 0.2 mg PO BID #60 tablet 05/12/15 08/03/16 Rx OXcarbazepine [Oxcarbazepine] 300 mg PO DAILY 04/27/16 08/03/16 History Gabapentin 600 mg PO QID 06/24/16 08/03/16 History Hydrocodone/Acetaminophen [Lortab 1 each PO QID PRN 06/24/16 08/03/16 History 10-325 mg Tablet] Hyoscyamine Odt Tab [Anaspaz] 1 tablet PO QID PRN 08/03/16 08/03/16 History Allergies/Adverse Reactions: Allergies Allergy/AdvReac Type Severity Reaction Status Date / Time acetaminophen [From Vicodin] Allergy Nausea Verified 06/24/16 13:15 hydrocodone [From Vicodin] Allergy Nausea Verified 06/24/16 13:15 tapentadol [From Nucynta] Allergy ITCHING Verified 06/24/16 13:15 aspirin AdvReac Unknown/Unable Verified 06/24/16 13:15 to obtain 12 point system: reviewed and no additional remarkable complaints except as stated Medical,Surgical,& Family Hx - Medical History Cardio: History of: Hypertension Psychological: History of: Bipolar Disorder Neurology: History of: Seizures Endocrine: No history of: Diabetes Mellitus (NIDDM) Respiratory: No history of: Asthma, COPD Genitourinary: No history of: Kidney Stones Gastrointestinal: History of: Gastrointestinal Bleed (remote NSAID induced ulceration), GI Problems (BLEEDING ULCERS) No history of: Liver Problems Musculoskeletal: History of: Back/Neck Problems (DR PRUITT), Musculoskeletal Problems (OA in rt hand) Reproductive: No history of: Abnormal Pap Smear Other: History of: Miscellaneous Medical Problems (chronic pain management Dr. Pruitt) - Surgical History Cardiac Surgeries: Patient Denies: Cardiac Catheterization Reproductive Surgeries: Surgical HX of;: Section (x3) - Family History Family History: Reports;: Family Stroke (MOTHER) - Social History Smoking Status: Current every day smoker Frequency of Alcohol Use: None Type of Drug Use: Opiates Physical Examination Vital Signs Pulse Resp BP Pulse Ox 115 H 35 H 214/132 77 L 08/03/16 03:40 08/03/16 03:40 08/03/16 03:40 08/03/16 03:40 General: Present: Appears Well, No Apparent Distress HEENT: Present: Normocephaly, Mucus Membranes Moist Neck: Present: Supple Neck, Midline Trachea, No JVD/HJR, No Masses Cardiac: Present: Reg Rate and Rhythm Lungs: Present: Normal Breath Sounds Neuro: Present: Grossly Intact Abdomen: Present: Soft, Active Bowel Sounds, No Masses, Tender (RUQ) Skin: Present: Clear Extremities: Present: No Clubbing, No Cyanosis, No Edema Result/EKG - Labs CBC & BMP: 08/04/16 04:25 08/04/16 04:25 Lab Results: I have reviewed the past 24 hour labs Labs: Laboratory Results - last 24 hr 08/03/16 08/03/16 08/03/16 07:23 15:25 16:16 WBC RBC Hgb Hct MCV MCH MCHC RDW Plt Count MPV Neut % (Auto) Lymph % (Auto) [place] % (Auto) Eos % (Auto) Baso % (Auto) Neut # (Auto) Lymph # (Auto) [place] # (Auto) Eos # (Auto) Baso # (Auto) Immature Gran % Nucleated RBC % Immature Gran # Nucleated RBCs # Sodium Potassium Chloride Carbon Dioxide Anion Gap BUN Creatinine GFR Calculation BUN/Creatinine Ratio Glucose POC Glucose 120 H 100 117 H Calculated Osmolality Calcium Magnesium Total Bilirubin AST ALT Alkaline Phosphatase Ammonia Total Creatine Kinase CK-MB (CK-2) Troponin I B-Natriuretic Peptide Total Protein Albumin Globulin Albumin/Globulin Ratio Triglycerides Cholesterol LDL Cholesterol VLDL Cholesterol HDL Cholesterol Heart Disease Risk Ratio Prolactin 08/03/16 08/03/16 08/03/16 16:20 16:20 16:20 WBC RBC Hgb Hct MCV MCH MCHC RDW Plt Count MPV Neut % (Auto) Lymph % (Auto) [place] % (Auto) Eos % (Auto) Baso % (Auto) Neut # (Auto) Lymph # (Auto) [place] # (Auto) Eos # (Auto) Baso # (Auto) Immature Gran % Nucleated RBC % Immature Gran # Nucleated RBCs # Sodium 144 Potassium 4.4 Chloride 105 Carbon Dioxide 30 Anion Gap 13.4 BUN 10 Creatinine 0.80 GFR Calculation 119 BUN/Creatinine Ratio 12.00 Glucose 107 H POC Glucose Calculated Osmolality 284.8 Calcium 8.8 Magnesium Total Bilirubin AST ALT Alkaline Phosphatase Ammonia < 10 L Total Creatine Kinase 109 CK-MB (CK-2) 2.8 Troponin I 0.258 H D B-Natriuretic Peptide Total Protein Albumin Globulin Albumin/Globulin Ratio Triglycerides Cholesterol LDL Cholesterol VLDL Cholesterol HDL Cholesterol Heart Disease Risk Ratio Prolactin 15.4 08/03/16 08/03/16 08/04/16 16:20 20:28 04:24 WBC RBC Hgb Hct MCV MCH MCHC RDW Plt Count MPV Neut % (Auto) Lymph % (Auto) [place] % (Auto) Eos % (Auto) Baso % (Auto) Neut # (Auto) Lymph # (Auto) [place] # (Auto) Eos # (Auto) Baso # (Auto) Immature Gran % Nucleated RBC % Immature Gran # Nucleated RBCs # Sodium Potassium Chloride Carbon Dioxide Anion Gap BUN Creatinine GFR Calculation BUN/Creatinine Ratio Glucose POC Glucose Calculated Osmolality Calcium Magnesium 2.2 Total Bilirubin AST ALT Alkaline Phosphatase Ammonia Total Creatine Kinase CK-MB (CK-2) Troponin I 0.154 H D B-Natriuretic Peptide 1513 H Total Protein Albumin Globulin Albumin/Globulin Ratio Triglycerides 92 Cholesterol 172 LDL Cholesterol 84.0 VLDL Cholesterol 18.4 HDL Cholesterol 80 H Heart Disease Risk Ratio 2.15 Prolactin 08/04/16 08/04/16 04:25 04:25 WBC 9.8 D RBC 4.21 Hgb 12.3 Hct 40.0 MCV 95.0 MCH 29 MCHC 30.8 L RDW 14.4 Plt Count 140 D MPV 12.6 H Neut % (Auto) 70.4 Lymph % (Auto) 20.5 L [place] % (Auto) 7.5 Eos % (Auto) 1.1 Baso % (Auto) 0.2 Neut # (Auto) 6.9 Lymph # (Auto) 2.0 [place] # (Auto) 0.7 Eos # (Auto) 0.1 Baso # (Auto) 0.0 Immature Gran % 0.3 Nucleated RBC % 0.0 Immature Gran # 0.03 Nucleated RBCs # 0.00 Sodium 144 Potassium 5.2 H Chloride 107 Carbon Dioxide 24 Anion Gap 18.2 H BUN 14 Creatinine 0.80 GFR Calculation 112 BUN/Creatinine Ratio 17.00 Glucose 81 POC Glucose Calculated Osmolality 285.8 Calcium 8.6 Magnesium Total Bilirubin 0.80 AST 36 ALT 15 Alkaline Phosphatase 138 H Ammonia Total Creatine Kinase CK-MB (CK-2) Troponin I B-Natriuretic Peptide Total Protein 6.5 Albumin 2.8 L Globulin 3.7 H Albumin/Globulin Ratio 0.7 L Triglycerides Cholesterol LDL Cholesterol VLDL Cholesterol HDL Cholesterol Heart Disease Risk Ratio Prolactin - EKG EKG results: interpreted by me
[2016-08-04] MEDS: DOCUSATE SODIUM 100 MG CAPSULE PO SCH ×2 (09:18→21:10)
[2016-08-04] MEDS: FUROSEMIDE 20 MG TABLET PO SCH ×2 (09:19→18:42)
[2016-08-04] MEDS: ESCITALOPRAM 10 MG TABLET PO SCH (09:20)
[2016-08-04] MEDS: PANTOPRAZOLE 40 MG TABLET PO SCH (09:20)
[2016-08-04] MEDS: GABAPENTIN 600 MG TABLET PO SCH ×4 (09:20→21:10)
[2016-08-04] MEDS ORDERED: LISINOPRIL 10 MG TABLET PO SCH (09:30)
[2016-08-04] MEDS: ASPIRIN EC 81 MG TABLET PO SCH (11:22)
[2016-08-04] MEDS: levETIRAcetam 500 MG TABLET PO SCH ×2 (11:22→20:51)
--- NOTE | 2016-08-04 14:40 | ECHO Report ---
[facility] Exam Date: 08/04/2016 09:39 Referring Physician: Technologist: Mulu Nolen RDCS Age: 55 Ht (in): Wt (lb): Gender: F Exam Location: [facility] Echo Indications: Right upper quad pain, Trigeminal neuralgia, Chronic pain syndrome, Seizures, Pulmonary edema, Weakness, Shortness of breath, Essential (primary) hypertension, Nicotine dependence, unspecified, uncomplicated BP: / HR: Rhythm: Sinus Technical Quality: IMPRESSIONS Normal left ventricular size, without hypertrophy, normal systolic function. There is a sigmoid septum. Estimated left ventricular ejection fraction 60%. Grade 2 diastolic dysfunction. Mild biatrial enlargement. Mild aortic valve insufficiency. Mild pulmonary hypertension. MEASUREMENTS (Male / Female) Normal Values 2D ECHO LV Diastolic Diameter PLAX 4.7 cm 4.2 - 5.9 / 3.9 - 5.3 cm LV Systolic Diameter PLAX 2.4 cm LV Fractional Shortening PLAX 49.5 % IVS Diastolic Thickness 1.2 cm 0.6 - 1.0 / 0.6 - 0.9 cm LVPW Diastolic Thickness 1.2 cm 0.6 - 1.0 / 0.6 - 0.9 cm RV Internal Dim ED PLAX 2.9 cm Aortic Root Diameter 2.9 cm LA Systolic Diameter LX 3.6 cm 3.0 - 4.0 / 2.7 - 3.8 cm DOPPLER TR Peak Velocity 337.0 cm/s TR Peak Gradient 45.4 mmHg FINDINGS Left Ventricle Normal left ventricular size, without hypertrophy, normal systolic function. There is a sigmoid septum. Estimated left ventricular ejection fraction 60%. Grade 2 diastolic dysfunction. Right Ventricle The right ventricle is normal in size and function. Right Atrium The right atrium is mildly enlarged. Left Atrium The left atrium is mildly dilated. Mitral Valve Structurally normal mitral valve, with trace regurgitation. Aortic Valve Structurally normal aortic valve, with mild insufficiency. Tricuspid Valve Morphologically normal tricuspid valve. Mild tricuspid valve regurgitation. Tricuspid regurgitation velocities suggest a PAP of 38 mmHg + Ra pressure. Pulmonic Valve Morphologically normal pulmonic valve without significant stenosis. There is trace pulmonic regurgitation. Pericardium Normal pericardium without effusion. Aorta Normal ascending aorta dimension. Mars Diaz (Electronically Signed) Final Date: 04 August 2016 14:38
--- NOTE | 2016-08-04 15:57 | Family Practice Progress Note ---
Family Practice - PN: Subj Interval history: Patient has been very alert today. She states she's been taking medications as prescribed at home. She's had no further episodes of clenching of teeth, following the mouth and mental status change since starting the Keppra. She was on Trileptal 300 mg 1 daily for seizures. States that she has not missed any of this medication. That is a low dose of Trileptal and I do not have any records to define what type of seizures she supposedly had. I will continue the Keppra until patient is evaluated by neurology and by Dr. Gertrudis Quinones. Patient's blood pressures have been extremely since admission. Medications have been modified but B.P.remains elevated. Blood pressure is 205/[address] Diaz had increased her beta blockers this a.m..her pulse is running in the 60s so will not further increase her beta blockers. I have increased her lisinopril. She has been taking Catapres 0.2 twice a day at home. We will increase this to 0.3 twice a day at present. If blood pressures remain elevated will give IV meds. Appreciate GIs evaluation. Tentatively scheduled for EGD in a.m. but patient states that she was admitted to [facility] 2 weeks ago and had an EGD at that time. States they were unable to find the cause of her abdominal pain. We'll need to try to get those records for review. Apparently she's had an upper GI bleed in the past. She's had no mental confusion today. Nurses report that she had her pain medications filled on 17 July and noted a bottle of pain medication was almost empty. Previously multiple factors involved in this case. Patient states that her blood pressures have been elevated for quite some time in spite of having medications changed. We will order additional hypertensive studies. Patient is stable at present except for the elevated blood pressures. Her lung payan are clear to auscultation. We'll continue present evaluation as stated above. Exam (Progress Note) - Constitutional Vitals: Period Temp Pulse Resp BP Sys/Vogel Pulse Ox Last 24 Hr 97.4 F-98.2 F 7-74 12-28 138-205/86-105 88-100 Results - Labs CBC & BMP: 08/04/16 04:25 08/04/16 04:25 Assessment and Plan (1) right upper quadrant abdominal pain Status: Acute Assessment and plan: Not sure of etiology of her abdominal pain. We will order additional studies and consult GI Current Visit: Yes (2) trigeminal neuralgia Status: Chronic Assessment and plan: Patient on chronic pain medications treated by Dr. Marshall Current Visit: Yes (3) chronic pain syndrome Status: Chronic Assessment and plan: Patient on chronic pain medications treated Dr. vargas Current Visit: Yes (4) bipolar disorder Status: Chronic Assessment and plan: Will resume home meds Current Visit: Yes (5) History of seizures Status: Chronic Current Visit: No (6) Hypertension Status: Chronic Assessment and plan: Will resume home meds Current Visit: No Qualifiers: Hypertension type: essential hypertension Qualified Code(s): I10 - Essential (primary) hypertension
[2016-08-04] MEDS: LEVOFLOXACIN INJ 500 MG in PREMIX 1 EACH IV SCH (17:30)
[2016-08-04] MEDS: ATENOLOL 25 MG TABLET PO SCH (20:51)
[2016-08-04] MEDS: LISINOPRIL 10 MG TABLET PO SCH (20:52)
[2016-08-05] MEDS: hydrALAZINE 20 MG/1 ML VIAL IV PRN ×2 (00:24→06:09)
[2016-08-05 03:52] LABS: Basophils % 0.1 % (0.0-0.8); Eosinophils # 0.1 10*3/uL (0.0-0.87); Eosinophils % 1.9 % (0.00-10.9); Hematocrit 39.8 VOL% (35.7-47.0); Immature Granulocytes % 0.3 %; Immature Granulocytes Absolute 0.02 #; Mean Corpuscular HGB Conc 32.7 GM/DL (32-36); Mean Corpuscular Hemoglobin 29 PG (27-34); Mean Corpuscular Volume 87.5 FL (87-102); Mean Platelet Volume 11.5 FL (9.6-12.0); Monocytes # 0.6 10*3/uL (0.11-0.8); Monocytes % 9.1 % (1.7-12.7); Neutrophils # 4.3 10*3/uL (1.4-7.4); Neutrophils % 60.6 % (38.7-73.9); Platelet Count 250 10*3/uL (130-400); Red Blood Count 4.55 10*6/uL (3.8-5.5); Red Cell Distribution Width 13.7 % (9.3-17.3)
[2016-08-05 04:01] LABS: Bilirubin,Total 0.7 MG/DL (0.2-1.0); Calcium 8.9 MG/DL (8.5-10.1); Osmolality,Calculated 280.3 MOS/KG (273-304); Potassium 3.7 MMOL/L (3.5-5.1); Total Protein 6.9 G/DL (6.4-8.3)
--- NOTE | 2016-08-05 06:01 | Pain Management Consult Note ---
Assessment and Plan (1) chronic pain syndrome Status: Chronic Assessment and plan: I think the patient may be taking her pain medications appropriately. Her daughter will bring her home medications to be counted. Patient can take oral narcotics including Percocet when necessary for pain during this admission as needed Current Visit: Yes History of Present Illness Chief complaint: right upper quadrant pain History of present illness: Ms. Klein is a 55 year old female Patient is well known to me and is being treated for cervical spondylosis with the use of [place]. The pill bottle in the pharmacy shows 120 [place] as were dispensed on July 24 and only 27 on left. I talked to the patient about it the patient maintains that the rest of the medications are at home and a different container and I have asked her to ask her daughter to bring those in to be counted today so the issue of overuse of narcotics can be resolved Patient is still complaining of right upper quadrant pain and is scheduled for a endoscopy later today Home Medications Medication Instructions Recorded Confirmed Type Atenolol [Atenolol] 1 tablet PO DAILY 05/12/15 08/03/16 History Escitalopram [Lexapro] 20 mg PO DAILY 05/12/15 08/03/16 History cloNIDine HCl [Clonidine HCl] 0.2 mg PO BID #60 tablet 05/12/15 08/03/16 Rx OXcarbazepine [Oxcarbazepine] 300 mg PO DAILY 04/27/16 08/03/16 History Gabapentin 600 mg PO QID 06/24/16 08/03/16 History Hydrocodone/Acetaminophen [Lortab 1 each PO QID PRN 06/24/16 08/03/16 History 10-325 mg Tablet] Hyoscyamine Odt Tab [Anaspaz] 1 tablet PO QID PRN 08/03/16 08/03/16 History Allergies Allergy/AdvReac Type Severity Reaction Status Date / Time acetaminophen [From Vicodin] Allergy Nausea Verified 06/24/16 13:15 hydrocodone [From Vicodin] Allergy Nausea Verified 06/24/16 13:15 tapentadol [From Nucynta] Allergy ITCHING Verified 06/24/16 13:15 aspirin AdvReac Unknown/Unable Verified 06/24/16 13:15 to obtain Medical,Surgical,& Family Hx - Medical History Cardio: History of: Hypertension Psychological: History of: Bipolar Disorder Neurology: History of: Seizures Endocrine: No history of: Diabetes Mellitus (NIDDM) Respiratory: No history of: Asthma, COPD Genitourinary: No history of: Kidney Stones Gastrointestinal: History of: Gastrointestinal Bleed (remote NSAID induced ulceration), GI Problems (BLEEDING ULCERS) No history of: Liver Problems Musculoskeletal: History of: Back/Neck Problems (DR CRUMP), Musculoskeletal Problems (OA in rt hand) Reproductive: No history of: Abnormal Pap Smear Other: History of: Miscellaneous Medical Problems (chronic pain management Dr. Crump) - Surgical History Cardiac Surgeries: Patient Denies: Cardiac Catheterization Reproductive Surgeries: Surgical HX of;: Section (x3) - Family History Family History: Reports;: Family Stroke (MOTHER) - Social History Smoking Status: Current every day smoker Frequency of Alcohol Use: None Type of Drug Use: Opiates 12 point system: reviewed and no additional remarkable complaints except as stated Exam - Constitutional Vitals: Period Temp Pulse Resp BP Sys/Vogel Pulse Ox Last 24 Hr 97 F-98.7 F 7-70 12-68 164-261/90-157 88-100 General appearance: normal weight - Head Head exam: Present: normal inspection - Eye Eye exam: Present: EOMI Pupils: Present: SUNDAR - ENT ENT exam: Present: normal exam Ear exam: Present: intact Mouth exam: Present: normal external inspection - Neck Neck exam: Present: normal inspection - Respiratory Respiratory exam: Present: clear to auscultation bilaterally - Cardiovascular Cardiovascular exam: Present: RRR - GI/Abdominal GI/Abdominal exam: Present: tenderness - Extremities Exam Extremities exam: Present: normal inspection - Back Exam Back exam: Present: normal inspection - Neurological Exam Neurological exam: Present: alert, oriented X3, normal gait - Skin Skin exam: Present: normal color Results - Labs CBC & BMP: 08/05/16 03:19 08/05/16 03:19 Lab Results: I have reviewed the past 24 hour labs
--- NOTE | 2016-08-05 06:55 | XRay Report ---
XR chest 1V portable Indication: CHF. Chest one view: Comparison yesterday. Heart size remains borderline enlarged with continued mild interstitial prominence of the lungs. No focal infiltrates are shown. Pleural spaces remain generally clear. Impression: Little significant change. PROCEDURE INTERPRETED AT [facility] DEPARTMENT OF RADIOLOGY Final Report Signed by: Hever Bobo M.D.
--- NOTE | 2016-08-05 08:38 | Ultrasound Report ---
Exam: US renal Bilateral Date: 08/05/2016 4:00 AM Indication: Malignant hypertension Comparison: Abdomen sonogram 08/03/2016 Findings: Right kidney.10.6 x 4.1 x 5 cm. There is no hydronephrosis perinephric fluid collection or focal mass present. Normal color flow Left kidney.10.8 x 5.3 x 5.1 cm. There is no hydronephrosis perinephric fluid collections or focal mass. Normal color flow Impression: 1. Normal renal sonography without obstructive uropathy. Renal artery Dopplers were not performed with routine imaging Ultrasound images were stored and captured PROCEDURE INTERPRETED AT [facility] DEPARTMENT OF RADIOLOGY Final Report Signed by: Dr. Farshad uHang
[2016-08-05] MEDS: FUROSEMIDE 20 MG TABLET PO SCH ×2 (09:53→16:41)
[2016-08-05] MEDS: DOCUSATE SODIUM 100 MG CAPSULE PO SCH ×2 (09:54→20:55)
[2016-08-05] MEDS: ASPIRIN EC 81 MG TABLET PO SCH (09:54)
[2016-08-05] MEDS: ESCITALOPRAM 10 MG TABLET PO SCH (09:55)
[2016-08-05] MEDS: levETIRAcetam 500 MG TABLET PO SCH ×2 (09:55→21:53)
[2016-08-05] MEDS: GABAPENTIN 600 MG TABLET PO SCH ×4 (09:55→20:55)
[2016-08-05] MEDS: LISINOPRIL 10 MG TABLET PO SCH ×2 (09:56→20:55)
[2016-08-05] MEDS: PANTOPRAZOLE 40 MG TABLET PO SCH (09:56)
[2016-08-05] MEDS: ATENOLOL 25 MG TABLET PO SCH ×2 (09:56→20:55)
--- NOTE | 2016-08-05 11:51 | Gastrointestinal Consult Note ---
History of Present Illness Chief complaint: Abd pain History of present illness: Ms. Klein is a 55 year old female who presented to the hospital with onset of SOB and abdominal pain. Pt was found by EMS unresponsive on the floor, combative. She was found to have new new bottles of [place] found on the floor with more than half of them reported to be taken as well as an empty bottle of Ambien. She came in complaining of weakness and abdominal pain. Pt is difficult to understand at times during visit however states the last two weeks she has had some upper abdominal pain. She states the pain does not seem to be precipitated by any known factors including meals. She states that she also has had nausea without vomiting. She reports "pouring blood from below" however not specific regarding this other than states she was try to treat her hemmorhoids with preparation H and is afraid she caused some "damage" doing this. Pt states the pain feels very similar to when she had an ulcer in 2011, which she had EGD by Dr Delatorre, however states she is not vomiting blood this time. EGD report was noted to show blood in the stomach, 1 cm ulcer in the antrum with active oozing and visible vessel and multiple duodenal bulb ulcers without bleeding. She is reported to have had an EGD at [facility] a couple of weeks ago with these records prnding at present time. She states she has had some dark runny stools the last several days however denies any hematochezia. She denies any recent weight loss that she can recall. Denies any NSAID use. Denies any fever or chills. Denies any history of gallbladder problems in past. She reportedly has 7 children. She is seen by Dr Pruitt at the pain clinic where she is treated for chronic pain issues. She has a history of bipolar disorder and seizures. Abd US is negative. CT of abdomen unremarkable. Hgb 13. BUN/Cr 18. Home Medications Medication Instructions Recorded Confirmed Type Atenolol [Atenolol] 1 tablet PO DAILY 05/12/15 08/03/16 History Escitalopram [Lexapro] 20 mg PO DAILY 05/12/15 08/03/16 History cloNIDine HCl [Clonidine HCl] 0.2 mg PO BID #60 tablet 05/12/15 08/03/16 Rx OXcarbazepine [Oxcarbazepine] 300 mg PO DAILY 04/27/16 08/03/16 History Gabapentin 600 mg PO QID 06/24/16 08/03/16 History Hydrocodone/Acetaminophen [Lortab 1 each PO QID PRN 06/24/16 08/03/16 History 10-325 mg Tablet] Hyoscyamine Odt Tab [Anaspaz] 1 tablet PO QID PRN 08/03/16 08/03/16 History Allergies Allergy/AdvReac Type Severity Reaction Status Date / Time acetaminophen [From Vicodin] Allergy Nausea Verified 06/24/16 13:15 hydrocodone [From Vicodin] Allergy Nausea Verified 06/24/16 13:15 tapentadol [From Nucynta] Allergy ITCHING Verified 06/24/16 13:15 aspirin AdvReac Unknown/Unable Verified 06/24/16 13:15 to obtain Medical,Surgical,& Family Hx - Medical History Cardio: History of: Hypertension Psychological: History of: Bipolar Disorder Neurology: History of: Seizures Endocrine: No history of: Diabetes Mellitus (NIDDM) Respiratory: No history of: Asthma, COPD Genitourinary: No history of: Kidney Stones Gastrointestinal: History of: Gastrointestinal Bleed (remote NSAID induced ulceration), GI Problems (BLEEDING ULCERS) No history of: Liver Problems Musculoskeletal: History of: Back/Neck Problems (DR PRUITT), Musculoskeletal Problems (OA in rt hand) Reproductive: No history of: Abnormal Pap Smear Other: History of: Miscellaneous Medical Problems (chronic pain management Dr. Pruitt) - Surgical History Cardiac Surgeries: Patient Denies: Cardiac Catheterization Reproductive Surgeries: Surgical HX of;: Section (x3) - Family History Family History: Reports;: Family Stroke (MOTHER) - Social History Smoking Status: Current every day smoker Frequency of Alcohol Use: None Type of Drug Use: Opiates Exam - Constitutional Vitals: Period Temp Pulse Resp BP Sys/Vogel Pulse Ox Last 24 Hr 97 F-98.7 F 58-69 12-68 164-261/96-157 88-98 Results - Labs CBC & BMP: 08/05/16 03:19 08/05/16 03:19 Specialty Discharge - Follow Up or Referrals
--- NOTE | 2016-08-05 11:58 | Gastrointestinal Progress Note ---
Assessment and Plan (1) right upper quadrant abdominal pain Status: Acute Assessment and plan: 08/05-Pain continues at present. No reports of N/V. Hgb stable at 13. No overt bleeding. CT and US reviewed with no acute findings. EGD was tentative for today however no scheduled. Will schedule for EGD tomorrow to further evaluate abd pain. Plan and addendum to follow by Dr Alcantar. Current Visit: Yes Gastroenterology - PN: Subj Interval history: CC: RUQ pain Pt is awake and alert, states she is feeling about the same at this time. She states she continues to have some abdominal pain but it is improved at present. She denies any nausea or vomiting at this time. She was to have tentative EGD today however was not scheduled. Will schedule this for tomorrow. Abdomen is soft, nontender. Hgb stable at 13. No overt bleeding has been reported. ROS: Denies SOB or chest pain Exam (Progress Note) - Constitutional Vitals: Period Temp Pulse Resp BP Sys/Vogel Pulse Ox Last 24 Hr 97 F-98.7 F 58-69 12-68 164-261/96-157 88-98 General appearance: normal weight, no acute distress - Head Head exam: Present: normal inspection, normocephalic - Eye Eye exam: Present: other (lids and conjunctiva unremarkable). Absent: scleral icterus - ENT ENT exam: Present: normal exam, normal oropharynx - Neck Neck exam: Present: normal inspection - Respiratory Respiratory exam: Present: clear to auscultation bilaterally. Absent: rales, rhonchi, wheezes - Cardiovascular Cardiovascular exam: Present: regular rate and rhythm. Absent: diastolic murmur , JVD, systolic murmur - GI/Abdominal GI/Abdominal exam: Present: normal bowel sounds, soft. Absent: ascites, distended, mass, organomegaly, tenderness - Extremities Exam Extremities exam: Present: normal inspection, full ROM - Back Exam Back exam: Present: normal inspection - Neurological Exam Neurological exam: Present: alert, oriented X3 - Psychiatric Psychiatric exam: Present: normal affect, normal mood - Skin Skin exam: Present: normal color, warm, dry Results - Labs CBC & BMP: 08/05/16 03:19 08/05/16 03:19 Lab Results: I have reviewed the past 24 hour labs Specialty Discharge - Follow Up or Referrals
--- NOTE | 2016-08-05 12:10 | Cardiology Progress Note ---
I, Scarlet Painting RN, am scribing for, and in the presence of, Parish Marshall MD 12:09. Assessment and Plan (1) Hypertension Status: Chronic Assessment and plan: 1. 55-year-old somewhat overweight BF with remote ulcers (probably NSAIDs by history), who presented with severe hypertension (blood pressure systolic rhythm and 200 mmHg), and right side pain which is resolved 2. I do not suspect acute coronary syndrome; I suspect her trivial troponin elevation was related to her severe hypertension; she denies ever having any chest discomfort, and has no cardiac history; also normal ejection fraction of 60% on her echocardiogram is encouraging 3. Add amlodipine 5 millions daily for better blood pressure control 4. Would consider outpatient stress test when her blood pressure is better controlled (1) NSTEMI (non-ST elevated myocardial infarction) Status: Acute Assessment and plan: 55y BF presented with acute onset right upper quadrant pain, cardiac biomarkers more than elevated, CHF, which resulted diuretics. Presentation is suspicious for hypertensive urgency, demand ischemia, CHF. This may have been exacerbated by opioid use, in addition, she may still also have some active GI pathology, history of ulcers. She is not bleeding actively. -NSTEMI. Will r/o ACS, eval for stress cardiomyopathy -Start ASA. I discussed this with Dr. Cordero. Until ACS is ruled out, we will need to keep her on an antiplatelet. She is not bleeding now. She is on a PPI. I would hold off adding Lovenox at this time. -Increase atenolol to 50 mg twice a day. BP still elevated. Cont clonidine. Add lisinopril 10 mg qd -Lipid panel normal. BS normal. If she rules in for ACS, will add statin -Echo. -Continue Lasix 20 mg by mouth twice a day. She got IV Lasix earlier, now the CHF symptoms improved and she does not have pulmonic congestion. -If the systolic function is preserved and she remains free of shortness of breath, GI evaluation may be pursued tomorrow. If she develops further CHF or echo shows significant CMP, may need cardiac/ischemic workup first Current Visit: Yes (2) Hypertension Status: Chronic Current Visit: No Qualifiers: Hypertension type: essential hypertension Qualified Code(s): I10 - Essential (primary) hypertension History of Present Illness - Data of Consult Patient: new to practice Consult date: 08/04/16 Requesting Physician: Keith Iglesias - Consult Narrative Reason for consult: syncope History of present illness: Ms. Klein is a 55 year old BF, with history of hypertension, GI ulcers, hemorrhoids, chronic pain issues. She developed severe right upper quadrant pain yesterday, which was quite rapid in onset. She described her diet for the past few days, in quite good detail, she did not have any major dietary issues but had lots of foods high in CH. She does drink some alcohold but does not seem to br drinking excessively. She called ambulance but by the time that she fell down and she may have passed out. She was then brought to the hospital. Initially, she did well, but then developed shortness of breath, which improved with diuresis. Now, she is comfortable, denies any chest pain shortness of breath but the abdominal pain still persists. She had a bowel movement yesterday. So far, workup, including CT labs x-ray and abdominal ultrasound, does not suggest obstruction or inflammatory process. She was recently evaluated for similar symptoms at [facility]. She also has a questionable history of seizures. No prior cardiac history, CABG, arrhythmia's, palpitations or chest pain. She may have taken too many [place], which is her usual pain medication. U tox was only positive for opiates. Cardiac enzymes were borderline elevated and remained flat. EKG showed significant ischemic changes. Blood pressure is still elevated. She had good urine output with Lasix. Current Visit: No Qualifiers: Hypertension type: essential hypertension Qualified Code(s): I10 - Essential (primary) hypertension (2) NSTEMI (non-ST elevated myocardial infarction) Status: Acute Current Visit: Yes (3) right upper quadrant abdominal pain Status: Acute Assessment and plan: Managed per GI. Current Visit: Yes (4) chronic pain syndrome Status: Chronic Assessment and plan: Management per Dr. Crump. Current Visit: Yes (5) History of seizures Status: Chronic Assessment and plan: continue current treatment plan. Current Visit: No Cardiology - PN: Subj Interval history: Patient presented with abdominal pain, chest pain, and elevated troponin levels. Her BNP was also elevated, she received a one time dose of IV Lasix and started on Lasix 20 mg BID. She reports her breathing is much better after being diuresed. She also reports that her chest pain has resolved. Her blood pressure has been markedly elevated during her stay. She is currently taking Lisinopril 10mg BID, Catapress 0.3 mg BID, and Hydralazine 10 mg IV PRN. Her blood pressure this morning remains high at 160/100. Nurse is at bedside administered morning medications. GI is following as well for management of abdominal pain and hematochezia. She reports that she has not had any more bloody stools. After discussing with GI patient was started on ASA, she is also taking PPI. GI plans to do an EDG today. She is currently in sinus rhythm with peaked T waves. Her heart rate is in the 60's. Exam (Progress Note) - Constitutional Vitals: Period Temp Pulse Resp BP Sys/Vogel Pulse Ox Last 24 Hr 97 F-98.7 F 58-69 12-68 164-261/96-157 88-98 General appearance: no acute distress, over weight - Head Head exam: Present: normal inspection - Neck Neck exam: Present: normal inspection - Respiratory Respiratory exam: Present: clear to auscultation bilaterally - Cardiovascular Cardiovascular exam: Present: regular rate and rhythm. Absent: gallop, systolic murmur - GI/Abdominal GI/Abdominal exam: Present: normal bowel sounds, soft. Absent: ascites, guarding - Extremities Exam Extremities exam: Present: normal inspection. Absent: edema - Neurological Exam Neurological exam: Present: alert, oriented X3 - Psychiatric Psychiatric exam: Present: normal affect, normal mood - Skin Skin exam: Present: normal color, warm, dry Result/EKG - Labs CBC & BMP: 08/05/16 03:19 08/05/16 03:19 Lab Results: I have reviewed the past 24 hour labs Labs: Laboratory Results - last 24 hr 08/05/16 08/05/16 03:19 03:19 WBC 7.0 RBC 4.55 Hgb 13.0 Hct 39.8 MCV 87.5 MCH 29 MCHC 32.7 RDW 13.7 Plt Count 250 D MPV 11.5 Neut % (Auto) 60.6 Lymph % (Auto) 28.0 [place] % (Auto) 9.1 Eos % (Auto) 1.9 Baso % (Auto) 0.1 Neut # (Auto) 4.3 Lymph # (Auto) 2.0 [place] # (Auto) 0.6 Eos # (Auto) 0.1 Baso # (Auto) 0.0 Immature Gran % 0.3 Nucleated RBC % 0.0 Immature Gran # 0.02 Nucleated RBCs # 0.00 Sodium 141 Potassium 3.7 Chloride 101 Carbon Dioxide 30 Anion Gap 13.7 BUN 15 Creatinine 0.80 GFR Calculation 111 BUN/Creatinine Ratio 18.00 Glucose 79 Calculated Osmolality 280.3 Calcium 8.9 Total Bilirubin 0.70 AST 21 ALT 17 Alkaline Phosphatase 146 H Total Protein 6.9 Albumin 3.0 L Globulin 3.9 H Albumin/Globulin Ratio 0.7 L - EKG EKG results: interpreted by me, sinus rhythm Specialty Discharge - Follow Up or Referrals Rolando Jenkins Randall Scott, MD, personally performed the services described in this documentation, ascribed by Scarlet Painting RN in my presence, and it is both accurate and complete 210 .
[2016-08-05] MEDS ORDERED: amLODIPine 5 MG TABLET PO SCH (12:30)
--- NOTE | 2016-08-05 12:45 | EKG Report ---
Stationary ECG Study 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
--- NOTE | 2016-08-05 16:16 | Neurology Consult Note ---
History of Present Illness History of present illness: Pt is a 55 y/o female who came to ED by EMS for further evaluation of SOB and abdomen pain s/p of EMS finding pt on floor of home the day of admission. EMS reports having to break door down to get in due to pt unresponsive on floor. EMS notes pt was combative when aroused and had sputum and gross amounts of BMs during walk from home to ambulance. EMS repots newly filled prescription bottles of 2 different norcos (2015) were found more than half taken of originally prescribed 90 to 100. Pt's bottle of ambien prescribed beginning of July 2016 is completely empty. Pt denies suicidal ideation . Pt is a smoker of Termo 100s and PCP is Dr. Love Quinones. Patient also has a history of seizures and has been maintained as an outpatient on Trileptal. I do not know if she has seen a neurologist before. I'm not sure who diagnosed with the seizures. She reported that she get 7-8 seizures per year. Main complaint at time of my evaluation was abdominal pain. She was on Trileptal but somehow she is on Keppra now. CT of the head showed old suprasellar mass which has not changed in size. Home Medications Medication Instructions Recorded Confirmed Type Atenolol [Atenolol] 1 tablet PO DAILY 05/12/15 08/03/16 History Escitalopram [Lexapro] 20 mg PO DAILY 05/12/15 08/03/16 History cloNIDine HCl [Clonidine HCl] 0.2 mg PO BID #60 tablet 05/12/15 08/03/16 Rx OXcarbazepine [Oxcarbazepine] 300 mg PO DAILY 04/27/16 08/03/16 History Gabapentin 600 mg PO QID 06/24/16 08/03/16 History Hydrocodone/Acetaminophen [Lortab 1 each PO QID PRN 06/24/16 08/03/16 History 10-325 mg Tablet] Hyoscyamine Odt Tab [Anaspaz] 1 tablet PO QID PRN 08/03/16 08/03/16 History Allergies Allergy/AdvReac Type Severity Reaction Status Date / Time acetaminophen [From Vicodin] Allergy Nausea Verified 06/24/16 13:15 hydrocodone [From Vicodin] Allergy Nausea Verified 06/24/16 13:15 tapentadol [From Nucynta] Allergy ITCHING Verified 06/24/16 13:15 aspirin AdvReac Unknown/Unable Verified 06/24/16 13:15 to obtain 12 point system: reviewed and no additional remarkable complaints except as stated Medical,Surgical,& Family Hx - Medical History Cardio: History of: Hypertension Psychological: History of: Bipolar Disorder Neurology: History of: Seizures Endocrine: No history of: Diabetes Mellitus (NIDDM) Respiratory: No history of: Asthma, COPD Genitourinary: No history of: Kidney Stones Gastrointestinal: History of: Gastrointestinal Bleed (remote NSAID induced ulceration), GI Problems (BLEEDING ULCERS) No history of: Liver Problems Musculoskeletal: History of: Back/Neck Problems (DR PRUITT), Musculoskeletal Problems (OA in rt hand) Reproductive: No history of: Abnormal Pap Smear Other: History of: Miscellaneous Medical Problems (chronic pain management Dr. Pruitt) - Surgical History Cardiac Surgeries: Patient Denies: Cardiac Catheterization Reproductive Surgeries: Surgical HX of;: Section (x3) - Family History Family History: Reports;: Family Stroke (MOTHER) - Social History Smoking Status: Current every day smoker Frequency of Alcohol Use: None Type of Drug Use: Opiates Exam - Constitutional Vitals: Period Temp Pulse Resp BP Sys/Vogel Pulse Ox Last 24 Hr 97 F-97.8 F 58-68 12-68 164-236/96-154 88-95 Exam: GENERAL: Patient is in no acute distress. NECK: Neck is supple. There is no JVD. No carotid bruits present. No thyroid masses. CVS: First and second heart sounds are normal. There is no S3 present. Regular rate and rhythm. RESPIRATORY: Lungs are clear to auscultation without any rales or rhonchi. ABDOMEN: Soft and non-tender. Bowel sounds are present. There is no hepatosplenomegaly. EXT: There is no palpable edema. Peripheral pulses are present. Skin: No rashes Central Nervous system: General: Alert, awake and Oriented x 3 Speech: Fluent Comprehension: Intact and normal Facial expressions: Normal Cranial Nerves: CN1/Olfactory: Normal CN II/ Optic: Normal, Visual [place] unreliable CN III, and : SUNDAR & EOMI CN V: Normal & intact CN VII: face is symmetric CNVIII: Normal CN XI/X/XI/XII: Intact and Normal Motor: Bulk and Tone is normal. Strength in the right 4-5/5 Strength in the left 4-5/5 Sensory: Grossly intact for all the modalities of PP, LT and temp sense Reflexes: 1+ and symmetrical Cerebellar function: Normal finger to nose and heel to mcnamara testing. Gait: Not tested this time Results - Labs CBC & BMP: 08/05/16 03:19 08/05/16 03:19 Assessment and Plan (1) chronic pain syndrome Status: Chronic Assessment and plan: Defer treatment to Dr. Pruitt. Element of opioid dependency. Current Visit: Yes (2) History of seizures Status: Chronic Assessment and plan: Continue Keppra 500 mg twice a day. We'll hold the Trileptal. We will do outpatient long-term video monitoring Current Visit: No (3) Pituitary adenoma Problem details: dizziness, syncopal episodes, visual disturbance over several months Status: Chronic Assessment and plan: MRI pituitary gland. Current Visit: No Specialty Discharge - Follow Up or Referrals
[2016-08-05] MEDS: LEVOFLOXACIN INJ 500 MG in PREMIX 1 EACH IV SCH (16:42)
--- NOTE | 2016-08-05 18:10 | Internal Med Progress Note ---
Assessment and Plan (1) NSTEMI (non-ST elevated myocardial infarction) Status: Acute Current Visit: Yes (2) right upper quadrant abdominal pain Status: Acute Current Visit: Yes (3) bipolar disorder Status: Chronic Current Visit: Yes (4) chronic pain syndrome Status: Chronic Current Visit: Yes (5) trigeminal neuralgia Status: Chronic Current Visit: Yes (6) History of seizures Status: Chronic Current Visit: No (7) Hypertension Status: Chronic Current Visit: Yes Qualifiers: Hypertension type: essential hypertension Qualified Code(s): I10 - Essential (primary) hypertension (8) Frontal headache Status: Resolved Current Visit: No Internal Medicine - PN: Subj Interval history: This is a 55 year old female with history of HTN, COPD, osteoarthritis, acid reflux, history of peptic ulcer disease, GI bleed 2013, chronic constipation, seizure disorder, Glaucoma, trigeminal neuralgia, who is here in hospital after being found collapsed on the floor in a house with inadequate furnishings and supplies. Suspicion of [place] overdose. Decreasing [place] here and giving Tramadol PRN. She was last seen in clinic in the spring as a new patient. She was seeing Dr. Crump for pain management for chronic pain issues involving osteoarthritic pain and trigeminal neuralgia. She did not get the labs that were ordered that day. She had come in complaining of epigastric pain. Also, she had a palpable thyroid nodule, and complaining of dysphagia. She has elevated troponin suggestive of nonSTEMI. Cardiology seeing her. Exam (Progress Note) - Constitutional Vitals: Period Temp Pulse Resp BP Sys/Vogel Pulse Ox Last 24 Hr 97 F-97.8 F 58-68 12-68 161-216/86-145 88-95 General appearance: no acute distress - Respiratory Respiratory exam: Present: clear to auscultation bilaterally - Cardiovascular Cardiovascular exam: Present: regular rate and rhythm - GI/Abdominal GI/Abdominal exam: Present: soft. Absent: tenderness - Extremities Exam Extremities exam: Absent: edema - Neurological Exam Neurological exam: Present: other (awake) - Psychiatric Psychiatric exam: Present: normal mood - Skin Skin exam: Present: warm, dry Results - Labs CBC & BMP: 08/05/16 03:19 08/05/16 03:19 - EKG EKG shows: sinus rhythm - Diagnostic Findings Procedure: Chest x-ray: report reviewed by me Specialty Discharge - Follow Up or Referrals
[2016-08-05] MEDS ORDERED: traMADol 50 MG TABLET PO PRN (18:15)
[2016-08-05] MEDS: hydrALAZINE 25 MG TABLET PO SCH (20:56)
[2016-08-05] MEDS ORDERED: ALBUTEROL/IPRATROPIUM 3 ML NEB RESP TX PRN (23:18)
[2016-08-06 04:00] LABS: Basophils % 0.1 % (0.0-0.8); Eosinophils # 0.1 10*3/uL (0.0-0.87); Eosinophils % 1.3 % (0.00-10.9); Hematocrit 40.2 VOL% (35.7-47.0); Hemoglobin 13.1 GM/DL (12.0-16.0); Immature Granulocytes % 0.4 %; Immature Granulocytes Absolute 0.03 #; Lymphocytes # 2.6 10*3/uL (1.4-4.0); Lymphocytes % 32.4 % (21.3-54.2); Mean Corpuscular HGB Conc 32.6 GM/DL (32-36); Mean Corpuscular Hemoglobin 28 PG (27-34); Mean Corpuscular Volume 86.3 FL (87-102); Mean Platelet Volume 11.5 FL (9.6-12.0); Monocytes # 0.9 10*3/uL (0.11-0.8); Monocytes % 10.5 % (1.7-12.7); Neutrophils # 4.5 10*3/uL (1.4-7.4); Neutrophils % 55.3 % (38.7-73.9); Platelet Count 300 10*3/uL (130-400); Red Blood Count 4.66 10*6/uL (3.8-5.5); Red Cell Distribution Width 13.8 % (9.3-17.3); White Blood Count 8.2 10*3/uL (4.5-13.71)
[2016-08-06 04:33] LABS: Albumin 3.1 G/DL (3.4-5.0); Bilirubin,Total 1.5 MG/DL (0.2-1.0); Osmolality,Calculated 279.5 MOS/KG (273-304); Potassium 3.6 MMOL/L (3.5-5.1); Total Protein 6.8 G/DL (6.4-8.3)
--- NOTE | 2016-08-06 06:03 | Pain Management Progress Note ---
Assessment and Plan (1) chronic pain syndrome Status: Chronic Assessment and plan: I think the patient may be taking her pain medications appropriately. Her daughter will bring her home medications to be counted. Patient can take oral narcotics including Percocet when necessary for pain during this admission as needed 08/06 I would like for the patient's family to bring her and used medications to be counted today so overuse issue on the medications can be verified Current Visit: Yes Pain - Subjective Interval history: Patient is alert awake and responsive and no evidence of oversedation at this time. Patient's son has not brought her medications yet so it is unknown to me whether she overtook her pain medications are Ambien at home or not. She is scheduled for endoscopic today to investigate right upper quadrant and epigastric pain Exam - Constitutional Vitals: Period Temp Pulse Resp BP Sys/Vogel Pulse Ox Last 24 Hr 97 F-98.7 F 55-68 12-28 79-176/62-100 92-97 General appearance: normal weight - Head Head exam: Present: normal inspection - Eye Eye exam: Present: EOMI Pupils: Present: SUNDAR - ENT ENT exam: Present: normal exam Ear exam: Present: intact Mouth exam: Present: normal external inspection - Neck Neck exam: Present: normal inspection - Respiratory Respiratory exam: Present: clear to auscultation bilaterally - Cardiovascular Cardiovascular exam: Present: RRR - GI/Abdominal GI/Abdominal exam: Present: tenderness - Extremities Exam Extremities exam: Present: normal inspection - Back Exam Back exam: Present: vertebral tenderness - Neurological Exam Neurological exam: Present: alert, oriented X3 Results - Labs CBC & BMP: 08/06/16 03:20 08/06/16 03:20 Lab Results: I have reviewed the past 24 hour labs Specialty Discharge - Follow Up or Referrals
[2016-08-06 06:13] LABS: 25 Hydroxy Vitamin D Total 6.6 NG/ML
[2016-08-06] MEDS: ESCITALOPRAM 10 MG TABLET PO SCH (09:19)
[2016-08-06] MEDS: LISINOPRIL 10 MG TABLET PO SCH ×2 (09:20→20:57)
[2016-08-06] MEDS: GABAPENTIN 600 MG TABLET PO SCH ×4 (09:21→20:56)
[2016-08-06] MEDS: ASPIRIN EC 81 MG TABLET PO SCH (09:22)
[2016-08-06] MEDS: FUROSEMIDE 20 MG TABLET PO SCH ×2 (09:23→15:23)
[2016-08-06] MEDS: amLODIPine 5 MG TABLET PO SCH (09:23)
[2016-08-06] MEDS: POTASSIUM CHLORIDE 10 MEQ TABLET PO SCH (09:23)
[2016-08-06] MEDS: levETIRAcetam 500 MG TABLET PO SCH ×2 (09:24→20:57)
[2016-08-06] MEDS: hydrALAZINE 25 MG TABLET PO SCH ×2 (09:24→20:58)
[2016-08-06] MEDS: PANTOPRAZOLE 40 MG TABLET PO SCH (09:24)
[2016-08-06] MEDS: DOCUSATE SODIUM 100 MG CAPSULE PO SCH ×2 (09:25→20:58)
[2016-08-06] MEDS: NICOTINE 14 MG/24 HR PATCH TRANSDERM SCH (09:30)
[2016-08-06] MEDS: ATENOLOL 25 MG TABLET PO SCH ×2 (09:31→20:57)
--- NOTE | 2016-08-06 09:46 | Physician Query Form ---
CLICK EDIT DOCUMENT TO SELECT QUERY ANSWER --> OK --> SIGN Neli Campuzano RN Clinical [employer] W) [phone] (f) [phone] [email or web address] PROVIDERS: Make your selection(s) from the choices in EACH section by typing an "x" and enter comments in the comment section. Please use your independent medical judgment in providing your response. This request does not imply that any particular answer is desired or expected. CLINICAL INDICATORS: (Providers should not edit this section) Pt. admitted with shortness of breath. Based on documentation of " Presentation is suspicious for CHF", CRA=[id number], Echo showed EF of 60% with grade 2 diastolic dysfunction, treated with IV Lasix. Please provide further specificity regarding CHF. ACUITY: ( ) Acute ( ) Chronic (x) Acute on Chronic ( ) Clinicallly unable to determine TYPE: ( ) Systolic (x) Diastolic ( ) Combined Systolic/Diastolic ( ) Other, please specify: ( ) Clinically unable to determine ( ) The patient does NOT have CHF COMMENTS: Use of terms such as suspected, likely, or probable (associated with a specific diagnosis that is being evaluated, monitored, or treated as if it exists) are acceptable and can be restated in the discharge summary if not ruled out. [facility]
[2016-08-06] MEDS: SODIUM CHLORIDE 0.9% 1,000 ML IV SCH (09:55)
--- NOTE | 2016-08-06 12:41 | Magnetic Resonance Report ---
Exam: MRI pituitary with and without contrast Date: August 06, 2016 Comparison: CT head without contrast August 03, 2016, MRI pituitary August 18, 2015 Reason: Pituitary gland tumor Technique: MRI of the pituitary was performed with and without the use of 19 cc IV Dotarem. Obtained precontrast sequences included coronal T2 thin cut, coronal T1 thin cut and sagittal T1 thin cut sequences. Coronal T1 dynamic pre-and postcontrast images were acquired as well as coronal and sagittal T1 thin cut postcontrast images. A 1.2 [place] open magnet was used. Findings: Motion artifact is present and makes evaluation difficult. There is again a mass occupying the left aspect of the sella and extending to the left suprasellar region. It measures approximately 1.6 x 1.6 x 1.6 cm. The pituitary stalk is poorly visualized. This mass abuts the inferior aspect of the optic chiasm, approximately 180? of the left cavernous ICA and likely the proximal left anterior cerebral artery. The mass again demonstrates T1/T2 isointensity and diffuse postcontrast enhancement. It could represent a pituitary macroadenoma or meningioma. Other less likely considerations include a craniopharyngioma, metastasis or other neoplastic process. Motion artifact limits evaluation, but the remaining visualized intracranial structures appear stable. Impression: There is again a mass within the left aspect of the sella, extending into the left suprasellar region. It is stable in size compared to August 18, 2015 and could represent a pituitary macroadenoma or meningioma. Other less likely considerations include a craniopharyngioma, metastatic disease or other neoplastic process. PROCEDURE INTERPRETED AT [facility] DEPARTMENT OF RADIOLOGY Final Report Signed by: Dr. Miguel Thomas
--- NOTE | 2016-08-06 12:53 | History and Physical Update ---
History and Physical Update - History and Physical H&P was reviewed, the patient examined and there: are no changes in the patients condition since last H&P was completed. - Physical Exam Mental Status: alert and oriented Heart: regular rate and rhythm Lung: clear to auscultation Abdomen: within normal limits Vitals: within normal limits
[2016-08-06] MEDS ORDERED: PROPOFOL 200 MG/20 ML VIAL IV ONE (12:54)
[2016-08-06] MEDS ORDERED: LIDOCAINE 2% 5 ML VIAL ONE (12:54)
--- NOTE | 2016-08-06 13:06 | Anesthesia ---
Anesthesia Post OP - Post Ansesthetic Evaluation Patient seen in post op: Yes Resp: within normal limits CV: within normal limits Mental: within normal limits Temp: within normal limits [id number]: within normal limits Nausea and Vomiting: within normal limits Pain: within normal limits
--- NOTE | 2016-08-06 13:06 | Operative Note ---
Date of procedure: 08/06/16 Pre-op diagnosis: Upper abdominal pain Procedure: Procedure: Esophagogastroduodenoscopy Brief clinical abstract: Patient 55-year-old female admitted with atypical chest pain and upper abdominal discomfort. This is predominantly in the right upper quadrant. She has had some nausea also without vomiting. Indication for procedure: Upper abdominal pain Endoscopic findings:[After informed consent was obtained, the patient was placed in the left lateral decubitus position. The gastroscope was inserted in the upper esophagus under direct vision with no resistance encountered. Esophageal mucosa appeared normal with squamocolumnar junction sharply demarcated at the diaphragmatic indentation. The endoscope was advanced in the stomach which was carefully examined including retroflexed view of the cardia and fundus with no abnormality seen. The pyloric channel, duodenal bulb, second and third portion of the duodenum were normal. The endoscope was withdrawn and patient appeared to tolerate the procedure well. Impression: Normal EGD Recommendations: Would treat symptomatically for what appears to be chest wall pain with nonsteroidal therapy and follow response to this. Anesthesia: MAC Surgeon / Physician: Farshad Alcantar Estimated blood loss: none Specimens: none sent Condition: stable Disposition: post procedure unit Results - Labs CBC & BMP: 08/06/16 03:20 08/06/16 03:20 Discharge Plan - Discharge Medications No Action Escitalopram [Lexapro] 20 mg PO DAILY Atenolol [Atenolol] 1 tablet PO DAILY cloNIDine HCl [Clonidine HCl] 0.2 mg PO BID #60 tablet OXcarbazepine [Oxcarbazepine] 300 mg PO DAILY Gabapentin 600 mg PO QID Hydrocodone/Acetaminophen [Lortab 10-325 mg Tablet] 1 each PO QID PRN PRN Reason: Pain Hyoscyamine Odt Tab [Anaspaz] 1 tablet PO QID PRN PRN Reason: gerd - Follow Up or Referral - Forms/Instructions Instructions: Myocardial Infarction (GEN), Heart Healthy Diet (GEN), Hypertensive Crisis (GEN)
[2016-08-06] MEDS: LEVOFLOXACIN INJ 500 MG in PREMIX 1 EACH IV SCH (16:38)
[2016-08-06] MEDS: hydrALAZINE 20 MG/1 ML VIAL IV PRN (20:58)
--- NOTE | 2016-08-06 23:41 | Internal Med Progress Note ---
Assessment and Plan (1) NSTEMI (non-ST elevated myocardial infarction) Status: Acute Current Visit: Yes (2) right upper quadrant abdominal pain Status: Acute Current Visit: Yes (3) bipolar disorder Status: Chronic Current Visit: Yes (4) chronic pain syndrome Status: Chronic Current Visit: Yes (5) trigeminal neuralgia Status: Chronic Current Visit: Yes (6) History of seizures Status: Chronic Current Visit: No (7) Hypertension Status: Chronic Current Visit: Yes Qualifiers: Hypertension type: essential hypertension Qualified Code(s): I10 - Essential (primary) hypertension Internal Medicine - PN: Subj Interval history: This is a 55 year old female with history of HTN, COPD, osteoarthritis, acid reflux, history of peptic ulcer disease, GI bleed 2013, chronic constipation, seizure disorder, Glaucoma, trigeminal neuralgia, who is here in hospital after being found collapsed on the floor in a house with inadequate furnishings and supplies. Suspicion of [place] overdose. Decreasing [place] here and giving Tramadol PRN. She was last seen in clinic in the spring as a new patient. She was seeing Dr. Crump for pain management for chronic pain issues involving osteoarthritic pain and trigeminal neuralgia. She did not get the labs that were ordered that day. She had come in complaining of epigastric pain. Also, she had a palpable thyroid nodule, and complaining of dysphagia. She has elevated troponin suggestive of nonSTEMI. Cardiology seeing her. Friday: still complaining of right sided pain. Adding Toradol IV and ordering ultrasound gallbladder. Will ask Dr. Crump to see whether non-narcotic solution to other pain is possible for her. Exam (Progress Note) - Constitutional Vitals: Period Temp Pulse Resp BP Sys/Vogel Pulse Ox Last 24 Hr 97.1 F-98.5 F 54-75 11-23 85-163/65-120 92-100 Exam: General appearance: no acute distress - Respiratory Respiratory exam: Present: clear to auscultation bilaterally - Cardiovascular Cardiovascular exam: Present: regular rate and rhythm - GI/Abdominal GI/Abdominal exam: Present: soft. RUQ tenderness to palpation - Extremities Exam Extremities exam: Absent: edema - Neurological Exam Neurological exam: Present: alert - Psychiatric Psychiatric exam: Present: normal mood - Skin Skin exam: Present: warm, dry Vitals reviewed. Results - Labs CBC & BMP: 08/06/16 03:20 08/06/16 03:20 Specialty Discharge - Follow Up or Referrals
[2016-08-07] MEDS: KETOROLAC 30 MG/1 ML VIAL IV SCH ×4 (05:48→22:20)
[2016-08-07 06:02] LABS: Albumin 3.2 G/DL (3.4-5.0); Bilirubin,Total 1.5 MG/DL (0.2-1.0); Calcium 9.1 MG/DL (8.5-10.1); Osmolality,Calculated 282.3 MOS/KG (273-304); Potassium 3.5 MMOL/L (3.5-5.1); Total Protein 6.9 G/DL (6.4-8.3)
--- NOTE | 2016-08-07 06:06 | Pain Management Progress Note ---
Assessment and Plan (1) chronic pain syndrome Status: Chronic Assessment and plan: I think the patient may be taking her pain medications appropriately. Her daughter will bring her home medications to be counted. Patient can take oral narcotics including Percocet when necessary for pain during this admission as needed 08/06 I would like for the patient's family to bring her and used medications to be counted today so overuse issue on the medications can be verified 08/07 have again asked the patient to have her family member bring unused medications from home to be counted and documented with the nurse Current Visit: Yes Pain - Subjective Interval history: Patient had EGD done which was normal. Patient and her family have not been able to produce the missing [place] and Ambien at this time. Patient is adamant that the [place] and Ambien at home. I have informed her that unless her family can bring the unused medications to be commented I will not be able to prescribe any more narcotics the MRI of the picture treatment plan was reviewed Exam - Constitutional Vitals: Period Temp Pulse Resp BP Sys/Vogel Pulse Ox Last 24 Hr 97.1 F-98.4 F 54-75 12-20 115-163/65-120 92-100 General appearance: normal weight - Head Head exam: Present: normal inspection - Eye Eye exam: Present: EOMI Pupils: Present: SUNDAR - ENT ENT exam: Present: normal exam Ear exam: Present: intact Mouth exam: Present: normal external inspection - Neck Neck exam: Present: normal inspection - Respiratory Respiratory exam: Present: clear to auscultation bilaterally - Cardiovascular Cardiovascular exam: Present: RRR - GI/Abdominal GI/Abdominal exam: Present: tenderness - Extremities Exam Extremities exam: Present: normal inspection - Back Exam Back exam: Present: vertebral tenderness - Neurological Exam Neurological exam: Present: alert, oriented X3 - Skin Skin exam: Present: normal color Results - Labs CBC & BMP: 08/06/16 03:20 08/07/16 04:43 Lab Results: I have reviewed the past 24 hour labs Specialty Discharge - Follow Up or Referrals
[2016-08-07] MEDS: ALBUTEROL/IPRATROPIUM 3 ML NEB RESP TX SCH ×3 (07:58→19:29)
--- NOTE | 2016-08-07 09:10 | Ultrasound Report ---
US gallbladder Indication: Right upper quadrant pain. ULTRASOUND ABDOMEN, limited Comparison: 08/03/16 Findings: Liver: Unremarkable Gallbladder: Unremarkable Common bile duct: 4 mm Pancreas: Unremarkable Right kidney: 10.3 cm length. No mass, cyst, calcification or obstruction Impression: Normal ultrasound. No change from 4 days ago. PROCEDURE INTERPRETED AT [facility] DEPARTMENT OF RADIOLOGY Final Report Signed by: Hever Bobo M.D.
[2016-08-07] MEDS: hydrALAZINE 25 MG TABLET PO SCH ×2 (09:30→20:41)
[2016-08-07] MEDS: ATENOLOL 25 MG TABLET PO SCH (09:30)
[2016-08-07] MEDS: LISINOPRIL 10 MG TABLET PO SCH ×2 (09:30→20:41)
[2016-08-07] MEDS: amLODIPine 5 MG TABLET PO SCH (09:30)
--- NOTE | 2016-08-07 09:39 | Gastrointestinal Progress Note ---
Assessment and Plan (1) right upper quadrant abdominal pain Status: Acute Assessment and plan: 08/07-Pain continues, worsened with eating, drinking. EGD findings noted. Gallbladder US normal. Consider HIDA scan. Plan and addendum to follow by DR Alcantar. 08/05-Pain continues at present. No reports of N/V. Hgb stable at 13. No overt bleeding. CT and US reviewed with no acute findings. EGD was tentative for today however no scheduled. Will schedule for EGD tomorrow to further evaluate abd pain. Plan and addendum to follow by Dr Alcantar. Current Visit: Yes Gastroenterology - PN: Subj Interval history: CC: Abd pain Pt is seen, sitting up in bed. States she is feeling about the same. She states her abdominal pain is a 10 at this time. She denies any nausea or vomiting but states when she tries to drink she gets nauseated and regurgitates at times. She had gallbladder US this morning which yielded normal results. Abdomen is soft, nontender today. Pain mgt has consulted with patient as well. She states she has reflux most all of the time despite taking her Prilosec. ROS: Denies SOB or chest pain Exam (Progress Note) - Constitutional Vitals: Period Temp Pulse Resp BP Sys/Vogel Pulse Ox Last 24 Hr 97.1 F-98.0 F 54-75 12-20 115-163/65-120 92-100 General appearance: normal weight, no acute distress - Head Head exam: Present: normal inspection, normocephalic - Eye Eye exam: Present: other (lids and conjunctiva unremarakble). Absent: scleral icterus - ENT ENT exam: Present: normal exam, normal oropharynx - Neck Neck exam: Present: normal inspection - Respiratory Respiratory exam: Present: clear to auscultation bilaterally. Absent: rales, rhonchi, wheezes - Cardiovascular Cardiovascular exam: Present: regular rate and rhythm. Absent: diastolic murmur , JVD, systolic murmur - GI/Abdominal GI/Abdominal exam: Present: normal bowel sounds, soft. Absent: ascites, distended, mass, organomegaly, tenderness - Extremities Exam Extremities exam: Present: normal inspection, full ROM - Back Exam Back exam: Present: normal inspection - Neurological Exam Neurological exam: Present: alert, oriented X3 - Psychiatric Psychiatric exam: Present: normal affect, normal mood - Skin Skin exam: Present: normal color, warm, dry Results - Labs CBC & BMP: 08/06/16 03:20 08/07/16 04:43 Lab Results: I have reviewed the past 24 hour labs - Diagnostic Findings Procedure: Ultrasound: report reviewed by me Specialty Discharge - Follow Up or Referrals
[2016-08-07] MEDS: DOCUSATE SODIUM 100 MG CAPSULE PO SCH ×2 (10:21→20:41)
[2016-08-07] MEDS: levETIRAcetam 500 MG TABLET PO SCH ×2 (10:22→20:41)
[2016-08-07] MEDS: ESCITALOPRAM 10 MG TABLET PO SCH (10:22)
[2016-08-07] MEDS: GABAPENTIN 600 MG TABLET PO SCH ×4 (10:24→20:41)
[2016-08-07] MEDS: POTASSIUM CHLORIDE 10 MEQ TABLET PO SCH (10:25)
[2016-08-07] MEDS: PANTOPRAZOLE 40 MG TABLET PO SCH (10:25)
[2016-08-07] MEDS: FUROSEMIDE 20 MG TABLET PO SCH ×2 (10:25→18:41)
[2016-08-07] MEDS: CHOLECALCIFEROL 1,000 UNIT TABLET PO SCH (10:26)
[2016-08-07] MEDS: ASPIRIN EC 81 MG TABLET PO SCH (10:26)
[2016-08-07] MEDS: NICOTINE 14 MG/24 HR PATCH TRANSDERM SCH (10:28)
--- NOTE | 2016-08-07 15:10 | Neurology Progress Note ---
Jose Jenkins Chassity, am scribing for, and in the presence of, Mike Pickett MD 16 :18. Neurology - PN : Subjective Interval history: Patient is feeling better. No seizures reported. MRI of the pituitary gland revealed pituitary gland tumor which is unchanged in size. Exam (Progress Note) - Constitutional Vitals: Period Temp Pulse Resp BP Sys/Vogel Pulse Ox Last 24 Hr 97.5 F-98.7 F 55-63 11-26 79-161/62-120 92-100 Exam: GENERAL: Patient is in no acute distress. NECK: Neck is supple. There is no JVD. No carotid bruits present. No thyroid masses. CVS: First and second heart sounds are normal. There is no S3 present. Regular rate and rhythm. RESPIRATORY: Lungs are clear to auscultation without any rales or rhonchi. ABDOMEN: Soft and non-tender. Bowel sounds are present. There is no hepatosplenomegaly. EXT: There is no palpable edema. Peripheral pulses are present. Skin: No rashes Central Nervous system: General: Alert, awake and Oriented x 3 Speech: Fluent Comprehension: Intact and normal Facial expressions: Normal Cranial Nerves: CN1/Olfactory: Normal CN II/ Optic: Normal, Visual [place] unreliable CN III, and : SUNDAR & EOMI CN V: Normal & intact CN VII: face is symmetric CNVIII: Normal CN XI/X/XI/XII: Intact and Normal Motor: Bulk and Tone is normal. Strength in the right 4-5/5 Strength in the left 4-5/5 Sensory: Grossly intact for all the modalities of PP, LT and temp sense Reflexes: 1+ and symmetrical Cerebellar function: Normal finger to nose and heel to mcnamara testing. Gait: Not tested this time Results - Labs CBC & BMP: 08/06/16 03:20 08/06/16 03:20 Assessment and Plan (1) Pituitary adenoma Problem details: dizziness, syncopal episodes, visual disturbance over several months Status: Chronic Assessment and plan: Stable Current Visit: No (2) History of seizures Status: Chronic Assessment and plan: Continue Keppra at the same dose. Continue to hold Trileptal. Current Visit: No Specialty Discharge - Follow Up or Referrals Piyush Jenkins Aamir, MD, personally performed the services described in this documentation, ascribed by Tatianna Garcia in my presence, and it is both accurate and complete .
[2016-08-07] MEDS: LEVOFLOXACIN INJ 500 MG in PREMIX 1 EACH IV SCH (17:25)
--- NOTE | 2016-08-07 20:09 | Cardiology Progress Note ---
I, Zora Patel RN, am scribing for, and in the presence of, Henry Kaplan MD 20:08. Assessment and Plan (1) NSTEMI (non-ST elevated myocardial infarction) Status: Acute Assessment and plan: 08/07/16-the yo zone rising troponin could be a supply/demand mismatch. Plan/ recommendation : Continue current medicines for heart. Once she is discharged we can do an outpatient stress test. Agree with continue workup of her gallbladder. I conferred care with the patient's nurse. Patient blood pressure and pulse is been slightly low. I recommend we hold the blood pressure medicine for now, so we are following that approach. Dr. Love Quinones is to reassess these meds. For some reason, she needs to take less medicine than what she has been on. EKG is okay. Current Visit: Yes (2) Hypertension Status: Acute Current Visit: Yes Qualifiers: Hypertension type: essential hypertension Qualified Code(s): I10 - Essential (primary) hypertension (3) right upper quadrant abdominal pain Status: Acute Assessment and plan: EGD yesterday was normal. Had Gallbladder US today, results pending. Current Visit: Yes (4) chronic pain syndrome Status: Chronic Current Visit: Yes (5) History of seizures Status: Chronic Current Visit: No Cardiology - PN: Subj Interval history: Resting in bed in no acute distress. She denies any chest pain, shortness of breath, or palpitations. She continues to complain of right sided abdominal pain. EGD done yesterday was normal. She just returned from gallbladder US, awaiting results. Pressures are better, ranging from 130-160/70-80. She is on Atenolol 50mg po bid, CLonidine 0.3mg po bid, norvasc 10mg po dly, Lisinopril 20mg po bid, and Hydralazine 25mg po bid. She has also been getting some Hydralazine IV prn. She is in sinus deonte with peaked T waves, rates in the 50' s. Exam (Progress Note) - Constitutional Vitals: Period Temp Pulse Resp BP Sys/Vogel Pulse Ox Last 24 Hr 97.1 F-98.0 F 54-75 12-20 115-163/65-120 92-100 General appearance: no acute distress, over weight - Head Head exam: Present: normal inspection - Neck Neck exam: Absent: tenderness - Respiratory Respiratory exam: Present: clear to auscultation bilaterally. Absent: accessory muscle use, chest wall tenderness - Cardiovascular Cardiovascular exam: Present: bradycardia, regular rate and rhythm - GI/Abdominal GI/Abdominal exam: Present: normal bowel sounds, tenderness (right side), soft. Absent: distended - Extremities Exam Extremities exam: Absent: edema - Neurological Exam Neurological exam: Present: alert, oriented X3 - Psychiatric Psychiatric exam: Present: normal mood - Skin Skin exam: Present: warm, dry Result/EKG - Labs CBC & BMP: 08/06/16 03:20 08/07/16 04:43 Lab Results: I have reviewed the past 24 hour labs Labs: Laboratory Results - last 24 hr 08/06/16 08/07/16 Unknown 04:43 Sodium 141 Potassium 3.5 Chloride 100 Carbon Dioxide 29 Anion Gap 15.5 H BUN 22 H Creatinine 1.10 H GFR Calculation 74 BUN/Creatinine Ratio 20.00 Glucose 87 Calculated Osmolality 282.3 Calcium 9.1 Total Bilirubin 1.50 H AST 20 ALT 14 Alkaline Phosphatase 137 H B-Natriuretic Peptide 55.8 Total Protein 6.9 Albumin 3.2 L Globulin 3.7 H Albumin/Globulin Ratio 0.8 L - EKG EKG results: interpreted by me EKG shows: bradycardia, sinus rhythm Specialty Discharge - Follow Up or Referrals IRosaura Dale, MD, personally performed the services described in this documentation, ascribed by Zora Patel RN in my presence, and it is both accurate and complete .
--- NOTE | 2016-08-07 21:16 | Internal Med Progress Note ---
Assessment and Plan (1) NSTEMI (non-ST elevated myocardial infarction) Status: Acute Current Visit: Yes (2) right upper quadrant abdominal pain Status: Acute Current Visit: Yes (3) bipolar disorder Status: Chronic Current Visit: Yes (4) chronic pain syndrome Status: Chronic Current Visit: Yes (5) trigeminal neuralgia Status: Chronic Current Visit: Yes (6) History of seizures Status: Chronic Current Visit: No (7) Hypertension Status: Acute Current Visit: Yes Qualifiers: Hypertension type: essential hypertension Qualified Code(s): I10 - Essential (primary) hypertension (8) Pituitary adenoma Problem details: dizziness, syncopal episodes, visual disturbance over several months Status: Chronic Current Visit: No Internal Medicine - PN: Subj Interval history: This is a 55 year old female with history of HTN, COPD, osteoarthritis, acid reflux, history of peptic ulcer disease, GI bleed 2013, chronic constipation, seizure disorder, Glaucoma, trigeminal neuralgia, who is here in hospital after being found collapsed on the floor in a house with inadequate furnishings and supplies. Suspicion of Dwight overdose. Decreasing Dwight here and giving Tramadol PRN. She was last seen in clinic in the spring as a new patient. She was seeing Dr. Crump for pain management for chronic pain issues involving osteoarthritic pain and trigeminal neuralgia. She did not get the labs that were ordered that day. She had come in complaining of epigastric pain. Also, she had a palpable thyroid nodule, and complaining of dysphagia. She has elevated troponin suggestive of nonSTEMI. Cardiology seeing her. Friday: still complaining of right sided pain. Adding Toradol IV and ordering ultrasound gallbladder. Will ask Dr. Crump to see whether non-narcotic solution to other pain is possible for her. Friday: she had refused Toradol, but will try it again to determine whether it relieves the right chest wall pain. She will be discharged to home tomorrow to follow up in [place] for pituitary mass. Exam (Progress Note) - Constitutional Vitals: Period Temp Pulse Resp BP Sys/Vogel Pulse Ox Last 24 Hr 96.9 F-97.5 F 59-72 16-20 123-149/67-90 92-100 Exam: General appearance: no acute distress - Respiratory Respiratory exam: Present: clear to auscultation bilaterally - Cardiovascular Cardiovascular exam: Present: regular rate and rhythm - GI/Abdominal GI/Abdominal exam: Present: soft. RUQ/chest wall tenderness to palpation - Extremities Exam Extremities exam: Absent: edema - Neurological Exam Neurological exam: Present: alert - Psychiatric Psychiatric exam: Present: normal mood - Skin Skin exam: Present: warm, dry Vitals reviewed. Results - Labs CBC & BMP: 08/06/16 03:20 08/07/16 04:43 Specialty Discharge - Follow Up or Referrals
--- NOTE | 2016-08-07 21:19 | Discharge Summary ---
Hospital Course - Hospital Course Hospital Course: This is a 55 year old female with history of HTN, COPD, osteoarthritis, acid reflux, history of peptic ulcer disease, GI bleed 2013, chronic constipation, seizure disorder, Glaucoma, trigeminal neuralgia, who is here in hospital after being found collapsed on the floor in a house with inadequate furnishings and supplies. Suspicion of Cyg[place] overdose. Decreasing C[place] here and giving Tramadol PRN. She was last seen in clinic in the spring of 2014 as a new patient. She was seeing Dr. Crump for pain management for chronic pain issues involving osteoarthritic pain and trigeminal neuralgia. She did not get the labs that were ordered that day. She had come in complaining of epigastric pain. Also, she had a palpable thyroid nodule, and complaining of dysphagia. She has elevated troponin suggestive of nonSTEMI. She will be discharged to home tomorrow to follow up in [place] for pituitary mass. Testing was unremarkable for GI workup. Encouraged her to pursue non-narcotic solutions to her chronic pain issues. Vit D is significantly low which may be contributing to body aches. Diagnosis - Discharge Diagnosis (1) NSTEMI (non-ST elevated myocardial infarction) Status: Acute (2) right upper quadrant abdominal pain Status: Acute (3) bipolar disorder Status: Chronic (4) chronic pain syndrome Status: Chronic (5) trigeminal neuralgia Status: Chronic (6) History of seizures Status: Chronic (7) Hypertension Status: Acute Specialty Discharge - Follow Up or Referrals Discharge Plan - Discharge Data Disposition: Disch To Home/Self Care Condition at Discharge: Stable Discharge Diet: low fat, low cholesterol Activity: increase activity as tolerated - Discharge Medications New Hyoscyamine Tab [Levsin Tab] 1 mg PO QID PRN #0 tablet PRN Reason: gerd levETIRAcetam TAB [Keppra Tab] 500 mg PO BID #60 tablet Acetaminophen Tab [Tylenol Tab] 650 mg PO Q6H PRN #0 tablet PRN Reason: Fever > 100.4 Or Headache Aspirin EC Tab 81 mg PO DAILY tablet Cholecalciferol (Vitamin D3) [Vitamin D3] 50,000 unit PO DIRECTED #1 capsule Docusate Sodium Cap [Colace Cap] 100 mg PO BID capsule Lisinopril [Prinivil] 20 mg PO BID #60 tablet Pantoprazole Tab [Protonix Tab] 40 mg PO DAILY #30 tablet Potassium Chloride Cap/Tab [K Dur] 20 meq PO DAILY #7 tablet hydrALAZINE TAB [Apresoline Tab] 25 mg PO BID #60 tablet traMADol TAB [Ultram] 50 mg PO Q12H PRN #60 tablet PRN Reason: Pain Continue Escitalopram [Lexapro] 20 mg PO DAILY Atenolol 1 tablet PO DAILY cloNIDine HCl [Clonidine HCl] 0.2 mg PO BID #60 tablet Changed Gabapentin 600 mg PO BEDTIME #30 tablet Discontinued OXcarbazepine [Oxcarbazepine] 300 mg PO DAILY Hydrocodone/Acetaminophen [Lortab 10-325 mg Tablet] 1 each PO QID PRN PRN Reason: Pain Hyoscyamine Odt Tab [Anaspaz] 1 tablet PO QID PRN PRN Reason: gerd - Follow Up or Referral Follow Up: Love Quinones DO [Physician] - - Forms/Instructions Instructions: Myocardial Infarction (GEN), Heart Healthy Diet (GEN), Hypertensive Crisis (GEN) Additional Discharge Instructions: She needs to follow up with doctor in [place] regarding pituitary mass. Follow up with Dr. Hyacinth Quinones in clinic as needed. She can be discharged to home tomorrow after breakfast. Exam - Constitutional Vitals: Period Temp Pulse Resp BP Sys/Vogel Pulse Ox Last 24 Hr 96.9 F-97.5 F 59-72 16-20 123-149/67-90 92-100 Exam: General appearance: no acute distress - Respiratory Respiratory exam: Present: clear to auscultation bilaterally - Cardiovascular Cardiovascular exam: Present: regular rate and rhythm - GI/Abdominal GI/Abdominal exam: Present: soft. RUQ/chest wall mild tenderness to palpation - Extremities Exam Extremities exam: Absent: edema - Neurological Exam Neurological exam: Present: alert - Psychiatric Psychiatric exam: Present: normal mood - Skin Skin exam: Present: warm, dry Vitals reviewed. Discharge Results Procedures and tests throughout hospitalization: Pending Orders 08/03/16 13:14 Blood Culture Stat 08/04/16 15:44 5HIAA [5-HIAA 24 Hour Urine] Routine 08/04/16 21:33 Cortisol Free 24 Hr UR Routine Metanephrines, Fractionated,24 Routine Labs on day of discharge: Labs from last 24 hours 08/07/16 04:43 Sodium 141 Potassium 3.5 Chloride 100 Carbon Dioxide 29 Anion Gap 15.5 H BUN 22 H Creatinine 1.10 H GFR Calculation 74 BUN/Creatinine Ratio 20.00 Glucose 87 Calculated Osmolality 282.3 Calcium 9.1 Total Bilirubin 1.50 H AST 20 ALT 14 Alkaline Phosphatase 137 H Total Protein 6.9 Albumin 3.2 L Globulin 3.7 H Albumin/Globulin Ratio 0.8 L Preliminary micro results at discharge 08/03/16 13:14 Blood Culture - Preliminary Blood No growth at 3 days 08/03/16 13:18 Blood Culture - Preliminary Blood No growth at 3 days DS: Provider Date of admission: 08/03/16 06:05 Primary care physician: . No PCP Attending physician on admission: Love Quinones DO Consults: 08/03/16 09:20 Consult to Physician [CONS] Routine Comment: ABD. PAIN Consulting Provider: Farshad Alcantar Person Notified: answering service Date Notified: 08/03/16 Time Notified: 18:55 08/03/16 14:06 Consult to Physician [CONS] Routine Comment: Consulting Provider: Cardiology - [facility] Person Notified: Dr. Campos Date Notified: 08/03/16 Time Notified: 18:35 08/03/16 17:13 Consult to Physician [CONS] Routine Comment: seizures Consulting Provider: Mike Pickett Consulting Provider Notified: Yes When should Consulting Provider be notified: Now Person Notified: james Date Notified: 08/05/16 Time Notified: 08:55 08/04/16 09:13 Consult to Cardiac Rehabilitation [CONS] Routine Reason for Cardiac Rehabilitation: Risk Factor Modification 08/07/16 00:36 Consult to Physician [CONS] Routine Comment: please decrease outpatient [place] Consulting Provider: Nadege Crump Discharging clinician: Love Quinones DO Expected date of discharge: 08/08/16
[2016-08-07] MEDS ORDERED: POTASSIUM CHLORIDE 20 MEQ TABLET PO SCH (22:54)
[2016-08-08] MEDS: ALBUTEROL/IPRATROPIUM 3 ML NEB RESP TX SCH ×3 (00:51→08:04)
[2016-08-08] MEDS: KETOROLAC 30 MG/1 ML VIAL IV SCH ×2 (04:46→06:56)
[2016-08-08 05:25] LABS: Potassium 4.2 MMOL/L (3.5-5.1)
[2016-08-08 05:27] LABS: Calcium 9.3 MG/DL (8.5-10.1)
[2016-08-08 05:29] LABS: Osmolality,Calculated 287.1 MOS/KG (273-304)
--- NOTE | 2016-08-08 06:11 | Pain Management Progress Note ---
Assessment and Plan (1) chronic pain syndrome Status: Chronic Assessment and plan: I think the patient may be taking her pain medications appropriately. Her daughter will bring her home medications to be counted. Patient can take oral narcotics including Percocet when necessary for pain during this admission as needed 08/06 I would like for the patient's family to bring her and used medications to be counted today so overuse issue on the medications can be verified 08/07 have again asked the patient to have her family member bring unused medications from home to be counted and documented with the nurse 08/08 will keep follow up appointment Current Visit: Yes Pain - Subjective Interval history: She is going home today. Patient has not been able to do reduce the pain medications and reports that she will get them when she gets home I will offered that she can bring the aneurysm medications tomorrow office in the next 2 or 3 working days to be counted Exam - Constitutional Vitals: Period Temp Pulse Resp BP Sys/Vogel Pulse Ox Last 24 Hr 96.9 F-97.5 F 59-72 16-20 118-149/67-90 92-100 General appearance: normal weight - Head Head exam: Present: normal inspection - Eye Eye exam: Present: EOMI Pupils: Present: SUNDAR - ENT ENT exam: Present: normal exam Ear exam: Present: intact Mouth exam: Present: normal external inspection - Neck Neck exam: Present: normal inspection - Respiratory Respiratory exam: Present: clear to auscultation bilaterally - Cardiovascular Cardiovascular exam: Present: RRR - GI/Abdominal GI/Abdominal exam: Present: normal bowel sounds - Extremities Exam Extremities exam: Present: normal inspection - Back Exam Back exam: Present: vertebral tenderness - Neurological Exam Neurological exam: Present: alert, oriented X3 - Skin Skin exam: Present: normal color Results - Labs CBC & BMP: 08/06/16 03:20 08/08/16 04:38 Lab Results: I have reviewed the past 24 hour labs Specialty Discharge - Follow Up or Referrals Follow up with: Love Quinones DO [Physician] -
[2016-08-08 08:11] LABS: 5-Hydroxyindoleacetic Acid, U 2.2 mg/24 h (<=8.0)
[2016-08-08] MEDS: LISINOPRIL 10 MG TABLET PO SCH (08:18)
[2016-08-08] MEDS: ESCITALOPRAM 10 MG TABLET PO SCH (08:18)
[2016-08-08] MEDS: ASPIRIN EC 81 MG TABLET PO SCH (08:19)
[2016-08-08] MEDS: levETIRAcetam 500 MG TABLET PO SCH (08:19)
[2016-08-08] MEDS: CHOLECALCIFEROL 1,000 UNIT TABLET PO SCH (08:20)
[2016-08-08] MEDS: FUROSEMIDE 20 MG TABLET PO SCH (08:20)
[2016-08-08] MEDS: hydrALAZINE 25 MG TABLET PO SCH (08:21)
[2016-08-08] MEDS: PANTOPRAZOLE 40 MG TABLET PO SCH (08:21)
[2016-08-08] MEDS: GABAPENTIN 600 MG TABLET PO SCH (08:21)
[2016-08-08] MEDS: DOCUSATE SODIUM 100 MG CAPSULE PO SCH (08:23)
[2016-08-08] MEDS: NICOTINE 14 MG/24 HR PATCH TRANSDERM SCH (08:23)
[2016-08-08] MEDS ORDERED: amLODIPine 5 MG TABLET PO SCH (09:00)
[2016-08-08 15:41] LABS: Normetanephrine, U 89 mcg/24 h; Total Metanephrines, U 144 mcg/24 h; Urine Volume 1475 mL
[2016-08-08 16:51] LABS: Urine Volume 1475 mL
[2016-08-08 19:40] VITALS: BP 192/68
== END 2016-08-08 08:30 | disposition home or self-care (01) | DRG 280 ==
LOC: EDBD → EDUNIT# → N.ED 03:39 → N.EDINP 06:05 → N.TELES 06:25 → N.CC 16:34 → N.4E 08-06 17:31
PROVIDERS: ADMIT Internal Medicine; ATTEND Internal Medicine

== ENCOUNTER 2022-03-05 11:27 | Observation (INO) ==
[2022-03-05] MEDS ORDERED: SODIUM CHLORIDE 0.9% 1,000 ML IV STA (11:50)
[2022-03-05] MEDS ORDERED: fentaNYL 100 MCG/2 ML VIAL IV STA (11:50)
[2022-03-05] MEDS ORDERED: ONDANSETRON 4 MG/2 ML VIAL IV STA (11:50)
[2022-03-05 12:09] LABS: Basophils % 0.2 % (0.0-0.8); Eosinophils % 0.2 % (0.00-10.9); Hematocrit 42.8 VOL% (35.7-47.0); Hemoglobin 14.2 GM/DL (12.0-16.0); Immature Granulocytes % 0.5 %; Immature Granulocytes Absolute 0.09 #; Lymphocytes # 1.4 10*3/uL (1.4-4.0); Lymphocytes % 7.5 % (21.3-54.2); Mean Corpuscular HGB Conc 33.2 GM/DL (32-36); Mean Corpuscular Volume 93.2 FL (87-102); Mean Platelet Volume 11.7 FL (9.6-12.0); Monocytes # 1.2 10*3/uL (0.11-0.8); Monocytes % 6.6 % (1.7-12.7); Platelet Count 215 T/CUMM (130-400); Red Blood Count 4.59 MC/CUMM (3.8-5.5); Red Cell Distribution Width 14.5 % (9.3-17.3); White Blood Count 18.2 T/CUMM (4-12)
[2022-03-05 12:27] LABS: Albumin 3.4 G/DL (3.4-5.0); Bilirubin,Total 0.8 MG/DL (0.20-1.00); Calcium 9.5 MG/DL (8.5-10.1); Osmolality,Calculated 283.3 MOS/KG (273-304); Potassium 3.6 MMOL/L (3.5-5.1); Total Protein 7.1 G/DL (6.4-8.2)
[2022-03-05] MEDS ORDERED: AMPICILLIN/SULBACTAM 3,000 MG in SODIUM CHLORIDE 0.9% 100 ML IV STA (13:14)
[2022-03-05] MEDS ORDERED: hydrALAZINE 20 MG/1 ML VIAL IV STA (13:16)
[2022-03-05 13:44] LABS: Mucus,Urine Occasional /LPF (Occasional); Protein,Urine 100 mg/dL (Negative); RBC,Urine 1 /HPF (0-4); Squamous Epithelial Cell,Urine Occasional /HPF (0-10); Urine Appearance Clear (Clear); Urine Color Yellow (Yellow); Urine Specific Gravity 1.025 (1.001-1.035)
[2022-03-05 13:45] LABS: Bilirubin,Urine Small mg/dL (Negative); Blood, Urine Negative (Negative); Glucose,Urine (UA) Negative (Negative); Ketones,Urine Negative (Negative); Nitrite,Urine Negative (Negative)
[2022-03-05] MEDS ORDERED: ACETAMINOPHEN 325 MG TABLET PO PRN (13:54)
[2022-03-05] MEDS ORDERED: ONDANSETRON 4 MG/2 ML VIAL IV PRN ×2 (13:54→17:00)
[2022-03-05] MEDS ORDERED: ALBUTEROL/IPRATROPIUM 3 ML NEB RESP TX PRN (13:54)
[2022-03-05] MEDS ORDERED: BISACODYL 5 MG TABLET PO PRN (13:54)
[2022-03-05] MEDS ORDERED: HYDROmorphone 1 MG/1 ML SYRINGE IV PRN ×2 (13:54)
[2022-03-05] MEDS ORDERED: KETOROLAC 30 MG/1 ML VIAL IV PRN (14:02)
[2022-03-05] MEDS ORDERED: TISSUE ADHESIVE 1 EACH APPLICATOR TOP ONE (15:14)
[2022-03-05] MEDS ORDERED: SUCCINYLCHOLINE 200 MG/10 ML VIAL ONE (15:34)
[2022-03-05] MEDS ORDERED: DEXAMETHASONE 4 MG/1 ML VIAL ONE (15:34)
[2022-03-05] MEDS ORDERED: fentaNYL 100 MCG/2 ML VIAL ONE (15:34)
[2022-03-05] MEDS ORDERED: ROCURONIUM 50 MG/5 ML VIAL IV ONE (15:34)
[2022-03-05] MEDS ORDERED: LIDOCAINE 2% 5 ML VIAL ONE (15:34)
[2022-03-05] MEDS ORDERED: ONDANSETRON 4 MG/2 ML VIAL ONE (15:34)
[2022-03-05] MEDS ORDERED: propofoL 200 MG/20 ML VIAL IV ONE (15:34)
[2022-03-05] MEDS ORDERED: METOPROLOL TARTRATE 5 MG/5 ML VIAL IV ONE ×3 (16:05→17:30)
[2022-03-05] MEDS ORDERED: SEVOFLURANE 1 UNIT/15 MINUTE INH ONE (16:05)
[2022-03-05] MEDS ORDERED: CLINDAMYCIN INJ 900 MG/50 ML PREMIX IV ONE (16:06)
[2022-03-05] MEDS ORDERED: hydrALAZINE 20 MG/1 ML VIAL ONE (16:14)
[2022-03-05] MEDS ORDERED: SUGAMMADEX 200 MG/2 ML VIAL IV ONE (16:15)
[2022-03-05] MEDS: HYDROmorphone 1 MG/1 ML SYRINGE IV PRN ×2 (16:55→17:15)
[2022-03-05] MEDS ORDERED: cloNIDine 0.1 MG TABLET PO PRN (18:35)
[2022-03-05] MEDS: LACTATED RINGERS 1,000 ML IV SCH (18:50)
[2022-03-05] MEDS: cloNIDine 0.1 MG TABLET PO SCH (21:23)
[2022-03-05] MEDS: PIPERACILLIN/TAZOBACTAM 3,375 MG in SODIUM CHLORIDE 0.9% 100 ML IV SCH (22:08)
[2022-03-06] MEDS: LACTATED RINGERS 1,000 ML IV SCH ×3 (04:10→14:44)
[2022-03-06] MEDS: PIPERACILLIN/TAZOBACTAM 3,375 MG in SODIUM CHLORIDE 0.9% 100 ML IV SCH ×3 (05:58→21:09)
[2022-03-06 06:08] LABS: Basophils % 0.1 % (0.0-0.8); Hematocrit 38.7 VOL% (35.7-47.0); Hemoglobin 12.1 GM/DL (12.0-16.0); Immature Granulocytes % 1.8 %; Immature Granulocytes Absolute 0.37 #; Lymphocytes # 1.3 10*3/uL (1.4-4.0); Mean Corpuscular HGB Conc 31.3 GM/DL (32-36); Mean Corpuscular Volume 96.3 FL (87-102); Mean Platelet Volume 12.2 FL (9.6-12.0); Monocytes # 0.7 10*3/uL (0.11-0.8); Monocytes % 3.4 % (1.7-12.7); Neutrophils % 88.7 % (38.7-73.9); Platelet Count 207 T/CUMM (130-400); Red Blood Count 4.02 MC/CUMM (3.8-5.5); Red Cell Distribution Width 14.7 % (9.3-17.3); White Blood Count 21.1 T/CUMM (4-12)
[2022-03-06 06:23] LABS: Calcium 8.9 MG/DL (8.5-10.1); Osmolality,Calculated 285.3 MOS/KG (273-304); Potassium 4.1 MMOL/L (3.5-5.1)
[2022-03-06 06:29] LABS: Lymphocytes 2 % (20-55); Platelet Estimate Normal; Total Cells Counted 100
[2022-03-06] MEDS: PANTOPRAZOLE 40 MG TABLET PO SCH (10:11)
[2022-03-06] MEDS: cloNIDine 0.1 MG TABLET PO SCH ×3 (10:11→20:34)
[2022-03-06] MEDS: atenoloL 50 MG TABLET PO SCH (10:12)
[2022-03-06] MEDS: METOPROLOL TARTRATE 5 MG/5 ML VIAL IV SCH (14:59)
[2022-03-07] MEDS: LACTATED RINGERS 1,000 ML IV SCH ×2 (05:16→12:15)
[2022-03-07] MEDS: PIPERACILLIN/TAZOBACTAM 3,375 MG in SODIUM CHLORIDE 0.9% 100 ML IV SCH (05:17)
[2022-03-07 05:19] LABS: Basophils % 0.2 % (0.0-0.8); Eosinophils # 0.1 10*3/uL (0.0-0.87); Eosinophils % 0.8 % (0.00-10.9); Hematocrit 36.1 VOL% (35.7-47.0); Hemoglobin 11.5 GM/DL (12.0-16.0); Immature Granulocytes % 1.2 %; Lymphocytes # 1.7 10*3/uL (1.4-4.0); Lymphocytes % 9.9 % (21.3-54.2); Mean Corpuscular HGB Conc 31.9 GM/DL (32-36); Mean Platelet Volume 11.6 FL (9.6-12.0); Monocytes # 1.1 10*3/uL (0.11-0.8); Monocytes % 6.5 % (1.7-12.7); Neutrophils % 81.4 % (38.7-73.9); Platelet Count 196 T/CUMM (130-400); Red Blood Count 3.76 MC/CUMM (3.8-5.5); Red Cell Distribution Width 15.2 % (9.3-17.3); White Blood Count 16.9 T/CUMM (4-12)
[2022-03-07 05:36] LABS: Calcium 8.9 MG/DL (8.5-10.1); Osmolality,Calculated 282.5 MOS/KG (273-304)
[2022-03-07] MEDS ORDERED: AMOXICILLIN/CLAV 875 MG TABLET PO SCH (09:00)
[2022-03-07] MEDS: PANTOPRAZOLE 40 MG TABLET PO SCH (09:02)
[2022-03-07] MEDS: cloNIDine 0.1 MG TABLET PO SCH (09:02)
[2022-03-07] MEDS: atenoloL 50 MG TABLET PO SCH (09:02)
[2022-03-07 11:27] VITALS: BP 120/62
== END 2022-03-07 11:45 | disposition left against medical advice (07) ==
LOC: EDBD → EDUNIT# → N.ED 11:27 → N.EDINP 11:27 → N.3E 17:48
PROVIDERS: ADMIT Student in an Organized Health Care Education/Training Program; ATTEND Student in an Organized Health Care Education/Training Program

== ENCOUNTER 2022-03-07 23:29 | Inpatient (IN) ==
[2022-03-08] MEDS ORDERED: LABETALOL 20 MG/4 ML SYRINGE IV STA (00:05)
[2022-03-08] MEDS ORDERED: ALBUTEROL/IPRATROPIUM 3 ML NEB RESP TX STA (00:05)
[2022-03-08 00:45] LABS: Basophils # 0.1 10*3/uL (0.0-0.2); Basophils % 0.4 % (0.0-0.8); Eosinophils # 0.5 10*3/uL (0.0-0.87); Hemoglobin 13.4 GM/DL (12.0-16.0); Immature Granulocytes % 1.2 %; Immature Granulocytes Absolute 0.26 #; Lymphocytes # 4.5 10*3/uL (1.4-4.0); Lymphocytes % 19.9 % (21.3-54.2); Mean Corpuscular HGB Conc 31.9 GM/DL (32-36); Mean Corpuscular Volume 96.3 FL (87-102); Mean Platelet Volume 11.8 FL (9.6-12.0); Monocytes # 1.3 10*3/uL (0.11-0.8); Monocytes % 5.9 % (1.7-12.7); Neutrophils % 70.6 % (38.7-73.9); Platelet Count 310 T/CUMM (130-400); Red Blood Count 4.36 MC/CUMM (3.8-5.5); Red Cell Distribution Width 15.3 % (9.3-17.3); White Blood Count 22.4 T/CUMM (4-12)
[2022-03-08 00:48] LABS: Arterial Base Excess iSTAT -4 MMOL/L (-2.5-2.5); Arterial Bicarbonate iSTAT 22.7 MMOL/L (20-26); Arterial O2 Saturation iSTAT 90 % (95-100); Arterial PCO2 iSTAT 44 MM HG (35-48); Arterial PO2 iSTAT 64 MM HG (80-95); Arterial Total CO2 iSTAT 24 MMO/L (23-27)
[2022-03-08 00:53] LABS: INR 0.9; PT Patient Result 10.4 SECS (10.1-12.1); Partial Thromboplastin Time 26.4 SECS (23.7-32.9)
[2022-03-08] MEDS ORDERED: PIPERACILLIN/TAZOBACTAM 3,375 MG in SODIUM CHLORIDE 0.9% 100 ML IV STA (00:55)
[2022-03-08 01:07] LABS: Albumin 3.3 G/DL (3.4-5.0); Bilirubin,Total 0.4 MG/DL (0.20-1.00); Calcium 9.2 MG/DL (8.5-10.1); Osmolality,Calculated 283.3 MOS/KG (273-304); Potassium 4.2 MMOL/L (3.5-5.1); Total Protein 6.8 G/DL (6.4-8.2)
[2022-03-08] MEDS ORDERED: NITROGLYCERIN 2% OINT 1 INCH/GM PACK TOP STA (01:16)
[2022-03-08 01:17] LABS: Eosinophils 1 % (0-10); Lymphocytes 24 % (20-55); Platelet Estimate Adequate; Total Cells Counted 100
[2022-03-08] MEDS ORDERED: hydrALAZINE 20 MG/1 ML VIAL IV STA (01:32)
[2022-03-08] MEDS ORDERED: HYDROmorphone 1 MG/1 ML SYRINGE IV STA (01:32)
[2022-03-08] MEDS ORDERED: ONDANSETRON 4 MG/2 ML VIAL IV ONE (01:32)
[2022-03-08] MEDS ORDERED: ONDANSETRON 4 MG/2 ML VIAL IV PRN (01:48)
[2022-03-08] MEDS ORDERED: ACETAMINOPHEN 325 MG TABLET PO PRN (01:48)
[2022-03-08] MEDS ORDERED: HYDROmorphone 1 MG/1 ML SYRINGE IV PRN (04:19)
[2022-03-08] MEDS ORDERED: cloNIDine 0.1 MG TABLET PO PRN ×2 (04:21→08:37)
[2022-03-08 05:31] LABS: Mucus,Urine Occasional /LPF (Occasional); RBC,Urine 2 /HPF (0-4)
[2022-03-08 05:32] LABS: Bilirubin,Urine Negative (Negative); Blood, Urine Negative (Negative); Glucose,Urine (UA) Negative (Negative); Ketones,Urine Negative (Negative); Nitrite,Urine Negative (Negative); Protein,Urine Trace mg/dL (Negative); Urine Appearance Clear (Clear); Urine Color Yellow (Yellow); Urine Specific Gravity 1.015 (1.001-1.035); Urine Urobilinogen 0.2 eU/dL (<2.0); Urine pH 5.5 (4.5-8.0)
[2022-03-08 06:31] LABS: Bilirubin,Total 0.5 MG/DL (0.20-1.00); Osmolality,Calculated 283.3 MOS/KG (273-304); Potassium 4.1 MMOL/L (3.5-5.1)
[2022-03-08 06:40] LABS: Basophils # 0.1 10*3/uL (0.0-0.2); Basophils % 0.3 % (0.0-0.8); Eosinophils # 0.4 10*3/uL (0.0-0.87); Eosinophils % 1.8 % (0.00-10.9); Hematocrit 40.4 VOL% (35.7-47.0); Hemoglobin 12.6 GM/DL (12.0-16.0); Immature Granulocytes % 1.4 %; Immature Granulocytes Absolute 0.26 #; Lymphocytes % 15.4 % (21.3-54.2); Mean Corpuscular HGB Conc 31.2 GM/DL (32-36); Mean Corpuscular Volume 98.5 FL (87-102); Mean Platelet Volume 12.1 FL (9.6-12.0); Monocytes # 1.6 10*3/uL (0.11-0.8); Monocytes % 8.3 % (1.7-12.7); Neutrophils % 72.8 % (38.7-73.9); Platelet Count 266 T/CUMM (130-400); Red Cell Distribution Width 15.4 % (9.3-17.3); White Blood Count 19.1 T/CUMM (4-12)
[2022-03-08 07:23] LABS: Barbiturates Screen,Urine Negative (Negative); Benzodiazepines Screen,Urine Negative (Negative); Cannabinoid Screen,Urine Negative (Negative); Opiate Screen,Urine Positive (Negative); Phencyclidine Screen,Urine Negative (Negative)
[2022-03-08] MEDS ORDERED: cloNIDine 0.1 MG TABLET PO SCH (09:00)
[2022-03-08] MEDS ORDERED: PIPERACILLIN/TAZOBACTAM 3,375 MG in SODIUM CHLORIDE 0.9% 100 ML IV SCH (09:00)
[2022-03-08] MEDS: LABETALOL 100 MG TABLET PO SCH ×2 (09:23→21:33)
[2022-03-08] MEDS: PANTOPRAZOLE 40 MG VIAL IV SCH (09:24)
[2022-03-08] MEDS: ALBUTEROL/IPRATROPIUM 3 ML NEB RESP TX SCH ×5 (09:58→19:17)
[2022-03-08] MEDS: LEVOFLOXACIN INJ 500 MG/100 ML PREMIX IV SCH (13:01)
[2022-03-08] MEDS ORDERED: FUROSEMIDE 40 MG/4 ML VIAL IV ONE (15:00)
[2022-03-08] MEDS: SODIUM CHLORIDE 0.9% 1,000 ML IV SCH (15:58)
[2022-03-08] MEDS ORDERED: hydrALAZINE 25 MG TABLET PO ONE (16:54)
[2022-03-08] MEDS: HYDROmorphone 1 MG/1 ML SYRINGE IV SCH (17:41)
[2022-03-08] MEDS: metroNIDAZOLE INJ 500 MG/100 ML PREMIX IV SCH (17:41)
[2022-03-08] MEDS: methylPREDNISolone SOD SUC 40 MG/1 ML VIAL IV SCH (18:57)
[2022-03-08] MEDS: traMADol 50 MG TABLET PO SCH (21:33)
[2022-03-08] MEDS: hydrALAZINE 25 MG TABLET PO SCH (21:33)
[2022-03-09] MEDS: HYDROmorphone 1 MG/1 ML SYRINGE IV SCH ×4 (00:08→17:36)
[2022-03-09] MEDS: ALBUTEROL/IPRATROPIUM 3 ML NEB RESP TX SCH ×7 (00:34→23:34)
[2022-03-09] MEDS: metroNIDAZOLE INJ 500 MG/100 ML PREMIX IV SCH ×3 (01:18→17:36)
[2022-03-09 06:00] LABS: Basophils % 0.2 % (0.0-0.8); Eosinophils % 0.2 % (0.00-10.9); Hematocrit 36.1 VOL% (35.7-47.0); Hemoglobin 11.5 GM/DL (12.0-16.0); Immature Granulocytes % 0.9 %; Immature Granulocytes Absolute 0.12 #; Lymphocytes # 1.3 10*3/uL (1.4-4.0); Lymphocytes % 10.1 % (21.3-54.2); Mean Corpuscular HGB Conc 31.9 GM/DL (32-36); Mean Platelet Volume 12.4 FL (9.6-12.0); Monocytes % 7.9 % (1.7-12.7); Neutrophils % 80.7 % (38.7-73.9); Platelet Count 164 T/CUMM (130-400); Red Blood Count 3.72 MC/CUMM (3.8-5.5); Red Cell Distribution Width 15.3 % (9.3-17.3); White Blood Count 13.1 T/CUMM (4-12)
[2022-03-09 06:26] LABS: Albumin 2.8 G/DL (3.4-5.0); Bilirubin,Total 0.6 MG/DL (0.20-1.00); Calcium 8.5 MG/DL (8.5-10.1); Osmolality,Calculated 276.7 MOS/KG (273-304); Total Protein 6.5 G/DL (6.4-8.2)
[2022-03-09] MEDS: methylPREDNISolone SOD SUC 40 MG/1 ML VIAL IV SCH ×2 (07:08→17:35)
[2022-03-09] MEDS: hydrALAZINE 25 MG TABLET PO SCH ×2 (09:25→20:27)
[2022-03-09] MEDS: traMADol 50 MG TABLET PO SCH ×3 (09:25→20:26)
[2022-03-09] MEDS: LABETALOL 100 MG TABLET PO SCH ×2 (09:25→20:27)
[2022-03-09] MEDS: PANTOPRAZOLE 40 MG VIAL IV SCH (09:26)
[2022-03-09] MEDS: SODIUM CHLORIDE 0.9% 1,000 ML IV SCH (09:29)
[2022-03-09] MEDS: SODIUM BICARB INJ 50 MEQ in SODIUM CHLORIDE 0.45% 1,000 ML IV SCH (11:55)
[2022-03-09] MEDS: LEVOFLOXACIN INJ 500 MG/100 ML PREMIX IV SCH (13:09)
[2022-03-10] MEDS: metroNIDAZOLE INJ 500 MG/100 ML PREMIX IV SCH ×2 (00:32→09:35)
[2022-03-10] MEDS: HYDROmorphone 1 MG/1 ML SYRINGE IV SCH ×2 (00:32→06:03)
[2022-03-10] MEDS: ALBUTEROL/IPRATROPIUM 3 ML NEB RESP TX SCH ×6 (03:30→23:53)
[2022-03-10] MEDS: SODIUM BICARB INJ 50 MEQ in SODIUM CHLORIDE 0.45% 1,000 ML IV SCH ×2 (04:30→17:59)
[2022-03-10] MEDS: methylPREDNISolone SOD SUC 40 MG/1 ML VIAL IV SCH (06:02)
[2022-03-10 06:04] LABS: Calcium 9.1 MG/DL (8.5-10.1); Osmolality,Calculated 276.7 MOS/KG (273-304); Potassium 3.9 MMOL/L (3.5-5.1)
[2022-03-10] MEDS ORDERED: HYDROmorphone 1 MG/1 ML SYRINGE IV PRN (07:33)
[2022-03-10] MEDS: LABETALOL 100 MG TABLET PO SCH ×2 (09:33→21:31)
[2022-03-10] MEDS: hydrALAZINE 25 MG TABLET PO SCH ×2 (09:33→21:31)
[2022-03-10] MEDS: traMADol 50 MG TABLET PO SCH ×3 (09:34→21:31)
[2022-03-10] MEDS: PANTOPRAZOLE 40 MG VIAL IV SCH (09:34)
[2022-03-10] MEDS: LEVOFLOXACIN INJ 500 MG/100 ML PREMIX IV SCH (13:16)
[2022-03-11] MEDS: metroNIDAZOLE INJ 500 MG/100 ML PREMIX IV SCH ×4 (02:18→22:25)
[2022-03-11] MEDS: ALBUTEROL/IPRATROPIUM 3 ML NEB RESP TX SCH ×6 (03:27→23:50)
[2022-03-11 05:42] LABS: Basophils % 0.2 % (0.0-0.8); Eosinophils # 0.1 10*3/uL (0.0-0.87); Eosinophils % 0.3 % (0.00-10.9); Hematocrit 34.5 VOL% (35.7-47.0); Immature Granulocytes % 2.4 %; Lymphocytes # 2.7 10*3/uL (1.4-4.0); Mean Corpuscular HGB Conc 31.9 GM/DL (32-36); Mean Corpuscular Volume 96.4 FL (87-102); Mean Platelet Volume 12.1 FL (9.6-12.0); Monocytes # 1.2 10*3/uL (0.11-0.8); Monocytes % 7.3 % (1.7-12.7); Neutrophils % 73.8 % (38.7-73.9); Platelet Count 231 T/CUMM (130-400); Red Blood Count 3.58 MC/CUMM (3.8-5.5); White Blood Count 16.8 T/CUMM (4-12)
[2022-03-11 06:00] LABS: Calcium 8.9 MG/DL (8.5-10.1); Osmolality,Calculated 282.3 MOS/KG (273-304); Potassium 3.4 MMOL/L (3.5-5.1)
[2022-03-11] MEDS: SODIUM BICARB INJ 50 MEQ in SODIUM CHLORIDE 0.45% 1,000 ML IV SCH ×2 (06:00→12:52)
[2022-03-11] MEDS: methylPREDNISolone SOD SUC 40 MG/1 ML VIAL IV SCH ×3 (06:36→17:33)
[2022-03-11] MEDS: PANTOPRAZOLE 40 MG VIAL IV SCH (09:25)
[2022-03-11] MEDS: hydrALAZINE 25 MG TABLET PO SCH ×2 (09:25→22:24)
[2022-03-11] MEDS: LABETALOL 100 MG TABLET PO SCH ×2 (09:25→22:24)
[2022-03-11] MEDS: traMADol 50 MG TABLET PO SCH ×3 (09:25→22:29)
[2022-03-11] MEDS: LEVOFLOXACIN INJ 500 MG/100 ML PREMIX IV SCH (14:52)
[2022-03-11] MEDS ORDERED: POTASSIUM CHLORIDE 20 MEQ TABLET PO ONE (19:55)
[2022-03-12] MEDS ORDERED: ALBUTEROL/IPRATROPIUM 3 ML NEB RESP TX ONE (00:30)
[2022-03-12] MEDS: ALBUTEROL/IPRATROPIUM 3 ML NEB RESP TX SCH ×5 (03:20→20:00)
[2022-03-12 04:23] LABS: Basophils % 0.2 % (0.0-0.8); Eosinophils % 0.1 % (0.00-10.9); Hematocrit 36.9 VOL% (35.7-47.0); Hemoglobin 11.9 GM/DL (12.0-16.0); Immature Granulocytes % 4.3 %; Immature Granulocytes Absolute 0.73 #; Lymphocytes # 1.3 10*3/uL (1.4-4.0); Lymphocytes % 7.5 % (21.3-54.2); Mean Corpuscular HGB Conc 32.2 GM/DL (32-36); Mean Corpuscular Volume 95.8 FL (87-102); Mean Platelet Volume 11.8 FL (9.6-12.0); Monocytes # 0.8 10*3/uL (0.11-0.8); Monocytes % 4.6 % (1.7-12.7); Neutrophils % 83.3 % (38.7-73.9); Platelet Count 276 T/CUMM (130-400); Red Blood Count 3.85 MC/CUMM (3.8-5.5); Red Cell Distribution Width 14.7 % (9.3-17.3); White Blood Count 17.1 T/CUMM (4-12)
[2022-03-12 04:43] LABS: Calcium 8.4 MG/DL (8.5-10.1); Osmolality,Calculated 280.3 MOS/KG (273-304); Potassium 4.1 MMOL/L (3.5-5.1)
[2022-03-12 05:03] LABS: Lymphocytes 8 % (20-55); Platelet Estimate Adequate; Total Cells Counted 100
[2022-03-12] MEDS: metroNIDAZOLE INJ 500 MG/100 ML PREMIX IV SCH ×3 (07:21→22:00)
[2022-03-12] MEDS: SODIUM BICARB INJ 50 MEQ in SODIUM CHLORIDE 0.45% 1,000 ML IV SCH ×2 (07:22→21:58)
[2022-03-12] MEDS: methylPREDNISolone SOD SUC 40 MG/1 ML VIAL IV SCH ×2 (07:26→17:35)
[2022-03-12] MEDS: hydrALAZINE 25 MG TABLET PO SCH ×2 (09:44→21:58)
[2022-03-12] MEDS: LABETALOL 100 MG TABLET PO SCH ×2 (09:44→21:57)
[2022-03-12] MEDS: traMADol 50 MG TABLET PO SCH (09:44)
[2022-03-12] MEDS: PANTOPRAZOLE 40 MG VIAL IV SCH (09:45)
[2022-03-12] MEDS: LEVOFLOXACIN INJ 500 MG/100 ML PREMIX IV SCH (14:15)
[2022-03-13] MEDS: ALBUTEROL/IPRATROPIUM 3 ML NEB RESP TX SCH ×4 (00:05→11:25)
[2022-03-13] MEDS: metroNIDAZOLE INJ 500 MG/100 ML PREMIX IV SCH ×2 (04:54→13:51)
[2022-03-13 05:30] LABS: Basophils # 0.1 10*3/uL (0.0-0.2); Basophils % 0.3 % (0.0-0.8); Eosinophils % 0.1 % (0.00-10.9); Hematocrit 40.1 VOL% (35.7-47.0); Hemoglobin 13.2 GM/DL (12.0-16.0); Immature Granulocytes % 5.3 %; Immature Granulocytes Absolute 0.99 #; Lymphocytes # 2.7 10*3/uL (1.4-4.0); Lymphocytes % 14.6 % (21.3-54.2); Mean Corpuscular HGB Conc 32.9 GM/DL (32-36); Mean Corpuscular Volume 93.7 FL (87-102); Mean Platelet Volume 11.3 FL (9.6-12.0); Monocytes # 1.3 10*3/uL (0.11-0.8); Monocytes % 6.7 % (1.7-12.7); Platelet Count 347 T/CUMM (130-400); Red Blood Count 4.28 MC/CUMM (3.8-5.5); Red Cell Distribution Width 14.6 % (9.3-17.3); White Blood Count 18.5 T/CUMM (4-12)
[2022-03-13 05:49] LABS: Calcium 8.3 MG/DL (8.5-10.1); Osmolality,Calculated 278.4 MOS/KG (273-304); Potassium 3.6 MMOL/L (3.5-5.1)
[2022-03-13 05:58] LABS: Lymphocytes 19 % (20-55); Platelet Estimate Adequate; Total Cells Counted 100
[2022-03-13] MEDS: hydrALAZINE 25 MG TABLET PO SCH (08:59)
[2022-03-13] MEDS: LABETALOL 100 MG TABLET PO SCH (08:59)
[2022-03-13] MEDS: PANTOPRAZOLE 40 MG VIAL IV SCH (09:00)
[2022-03-13] MEDS: SODIUM BICARB INJ 50 MEQ in SODIUM CHLORIDE 0.45% 1,000 ML IV SCH (09:00)
[2022-03-13 13:00] VITALS: BP 143/74
[2022-03-13] MEDS: LEVOFLOXACIN INJ 500 MG/100 ML PREMIX IV SCH (13:53)
== END 2022-03-13 14:30 | disposition home or self-care (01) | DRG 194 ==
LOC: N.ED 23:29 → N.EDINP 03-08 01:46 → N.TELEN 03-08 05:06
PROVIDERS: ADMIT Internal Medicine; ATTEND Internal Medicine